=== PATIENT | female | born 1945 | race Caucasian/White ===

== ENCOUNTER 2018-12-27 21:38 | Inpatient (IN) ==
[2018-12-27] MEDS ORDERED: DUONEB (A & A) INH ONE (21:55)
[2018-12-27] MEDS ORDERED: ROCEPHIN 1 GM in NS 50 ML IV ONE (21:56)
[2018-12-27] MEDS ORDERED: PULMICORT INH ONE (21:56)
--- NOTE | 2018-12-27 22:10 | Diag Imaging Result Doc PS360 ---
EXAM: CHEST-1 VIEW HISTORY: SOB TECHNIQUE: Single view COMPARISON: 05/28/2017 FINDINGS: The lungs are well expanded. There are increased interstitial markings throughout both lungs. No cardiomegaly. There is a right jugular portacatheter. Small left pleural effusion. IMPRESSION: Bilateral infiltrates/pulmonary edema Electronically signed by Yves Mack 12/27/2018 10:08 PM
--- NOTE | 2018-12-27 22:12 | PROVIDER DOCUMENTATION ---
HPI-Respiratory General - General Chief Complaint: Shortness of Breath Stated Complaint: pna, sob Time Seen by Provider: 12/27/18 21:43 Source: patient Allergies/Adverse Reactions: Patient Allergies Allergy/AdvReac Type Severity Reaction Status Date / Time lorazepam [From Ativan] Allergy Unknown Verified 11/29/15 17:38 morphine Allergy Unknown Verified 11/29/15 17:38 Home Medications: Home Medication List Medication Instructions Recorded Confirmed Last Taken Type Clopidogrel [Plavix] 75 mg PO DAILY 09/22/15 12/27/18 11/28/15 History Furosemide 40 mg PO DAILY 09/22/15 12/27/18 11/28/15 History Losartan Potassium 100 mg PO DAILY 09/22/15 12/27/18 11/28/15 History Metformin [Glucophage] 500 mg PO DAILY 09/22/15 12/27/18 11/28/15 History Metoprolol Succinate E.r. [Toprol 12.5 mg PO DAILY 09/22/15 12/27/18 11/28/15 History Xl] Amlodipine [Norvasc] 5 mg PO DAILY 11/29/15 12/27/18 11/28/15 History Glipizide [Glipizide ER] 10 mg PO BID 11/29/15 12/27/18 11/28/15 History ATORVAstatin [Lipitor] 80 mg PO DAILY 12/27/18 12/27/18 Unknown History Aripiprazole 2 mg PO DAILY 12/27/18 12/27/18 Unknown History Fexofenadine [Cherry] 180 mg PO DAILY 12/27/18 12/27/18 Unknown History Insulin NPH Hum/Reg Insulin Hm 40 units SUBQ DAILY 12/27/18 12/28/18 Unknown History [Novolin 70-30 100 Unit/ml Vial] Isosorbide Mononitrate [Isosorbide 60 mg PO DAILY 12/27/18 12/27/18 Unknown History Mononitrate ER] - History of Present Illness-Resp Nature of Presenting Problem: 73 YO F pmh for COPD and lung CA s/p chemo and radiation therapy 3 years ago presents with c/o SOB x2 days worse over the past 24 hours. Pt states she went to urgent care and was dx with pna and given 1 shot of abx. She comes here because her SOB is worse. She is not on home o2. She denies CP. Quality of Pain: reports: none Severity in ED: reports: moderate Onset/Duration: reports: 2 days ago Timing: reports: still present, getting worse Context: reports: recent URI, other (pna). denies: recent foreign travel Cough Quality/Degree: reports: mild Associated Symptoms: reports: cough, fever/chills, shortness of breath. denies: hurts to breathe, sore throat Similar Symptoms Previously?: Yes Recently seen or treated by another doctor?: Yes (seen by urgent care, given abx) Review of Systems - Adult - REVIEW OF SYSTEMS - ADULT Constitutional: reports: chills. denies: fever Eyes: reports: no symptoms reported Ears, Nose, Mouth & Throat: reports: no symptoms reported Cardiovascular: denies: chest pain, edema, palpitations Respiratory: reports: cough, shortness of breath, wheezing Gastrointestinal: denies: diarrhea, nausea, vomiting Genitourinary: reports: no symptoms reported Musculoskeletal: reports: no symptoms reported Integumentary: reports: no symptoms reported Endocrine: reports: no symptoms reported Past History - Adult - PAST MEDICAL HISTORY-ADULT Review of Records: reports: Old Records Reviewed, Medications Reviewed Cardiovascular: reports: CAD, HTN, hyperlipidemia Respiratory: reports: asthma, cancer (lung) Gastrointestinal: reports: GERD Neurological: reports: CVA, other (menieres) Psychiatric: reports: anxiety Endocrine/Immune: reports: Diabetes - PRIOR SURGERIES/PROCEDURES Surgical/Procedure History: reports: cholecystectomy, hysterectomy. denies: recent surgery - IMMUNIZATION STATUS Childhood Immunizations: See Nurse Assessment Flu Vaccine: See Nurse Assessment - FAMILY HISTORY Family History: reviewed, not pertinent - SOCIAL HISTORY Smoking: quit greater than 1 year Substance Use: denies Living Situation: alone Physical Exam-General - PHYSICAL EXAM-ADULT Initial Vital Signs Reviewed: Yes - CONSTITUTIONAL General Appearance: alert, mild distress (resp distress) - EYES Eyes: PERRL/EOMI, pink conjunctivae - RESPIRATORY Respiratory: respiratory distress, accessory muscle use, crackles, wheezing - CARDIOVASCULAR Cardiovascular: no edema, tachycardia - GASTROINTESTINAL (ABDOMEN) Abdominal Exam: non tender, soft. negative: distended - MUSCULOSKELETAL Extremity: normal range of motion, normal inspection - SKIN Integumentary: normal color, normal turgor, warm/dry - PSYCHIATRIC Psych/Mental Status: normal mood/affect, oriented x 3 - HEART Score HEART Score: History: Slightly Suspicious HEART Score: ECG: Non-Specific Repolarization Disturbance/LBBB/PM HEART Score: Age: > or = 65 Years HEART Score: Risk Factors for Atherosclerotic Disease: 1 or 2 Risk Factors HEART Score: Troponin: 1-3x Normal Limit Total HEART Score:: 5 Progress - PLAN OF CARE/RESULTS Progress/Plan/Lab Results: Orders Category Date Time [facility] Routine [id number] 12/28/18 05:09 Active Activity - Up with Assistance ORDERED Care 12/28/18 05:09 Active Cardiac Monitoring DIRECTED Care 12/27/18 21:56 Completed FSBS/Accucheck Result AC + HS Care 12/28/18 05:09 Completed Intake and Output-Strict ORDERED Care 12/28/18 05:09 Completed Nursing- MD Consult Request ROUTINE Care 12/28/18 05:09 Completed Vital Signs Order Q 8-HR ASSESS Care 12/28/18 05:09 Completed Z-Document. for Tele Applied ORDERED Care 12/28/18 05:09 Completed NPO Diet 12/28/18 05:10 Completed CHEST-1 VIEW [RAD] Stat Exams 12/27/18 21:54 Completed CTA [CT ANGIOGRM PULMONARY ARTERIES] [CT] Stat Exams 12/27/18 21:59 Completed ABG [RESP] Routine Lab 12/27/18 22:25 Completed BASIC METABOLIC PANEL [CHEM] Routine Lab 12/29/18 04:35 Completed CBC WITH DIFF [HEME] Routine Lab 12/29/18 04:35 Completed CBC WITH ELECTRONIC DIFF [HEME] Stat Lab 12/27/18 22:36 Completed CK PROFILE [SP CHEM] Stat Lab 12/27/18 22:36 Completed COMPREHENSIVE METABOLIC PANEL [CHEM] Stat Lab 12/27/18 22:36 Completed TROPONIN T Q8HR Lab 12/28/18 13:16 Completed TROPONIN T Q8HR Lab 12/28/18 20:59 Completed TROPONIN T Q8HR Lab 12/29/18 04:35 Completed TROPONIN T Stat Lab 12/27/18 22:36 Completed TSH Stat Lab 12/27/18 22:36 Completed URINALYSIS W/POSS RFLX CULT [URINALYSIS] Stat Lab 12/28/18 00:05 Completed URINE CULTURE [RM] Routine Lab 12/28/18 01:36 Completed URINE MANUAL MICROSCOPIC [URINALYSIS] Stat Lab 12/28/18 00:05 Completed 0.9% Sodium Chloride Inj [Ns] 1,000 ml Med 12/28/18 00:00 Discontinued IV 999 mls/hr ATORVAstatin [Lipitor] Med 12/28/18 09:00 Discontinued 80 mg PO DAILY Albuterol 2.5MG/Ipratrop 0.5MG [Duoneb (A & A)] Med 12/28/18 05:09 Discontinued 3 ml INH Q4H PRN PRN Albuterol 2.5MG/Ipratrop 0.5MG [Duoneb (A & A)] Med 12/27/18 21:55 Discontinued 6 ml INH NOW ONE Amlodipine [Norvasc] Med 12/28/18 09:00 Discontinued 5 mg PO DAILY Aripiprazole [Abilify] Med 12/28/18 09:00 Discontinued 2 mg PO DAILY Azithromycin 500 mg/Ns [Zithromax 500 mg/Ns] Med 12/28/18 01:03 Discontinued 500 mg in 250 ml IV NOW Budesonide [Pulmicort] Med 12/27/18 21:56 Discontinued 0.5 mg INH NOW ONE CefTRIAXONE [Rocephin] 1 gm Med 12/27/18 21:56 Discontinued 0.9% Sodium Chloride Inj [Ns] 50 ml IV NOW Clopidogrel [Plavix] Med 12/28/18 09:00 Discontinued 75 mg PO DAILY Furosemide [Lasix] Med 12/28/18 09:00 Discontinued 40 mg PO DAILY Heparin Med 12/28/18 05:09 Discontinued 5,000 unit SUBQ Q12H Insulin Human Regular [Humulin R] Med 12/28/18 07:00 Discontinued See Protocol SUBQ 0700,1100,1600,2100 Isosorbide Mononitrate E.r. [Imdur] Med 12/28/18 09:00 Discontinued 60 mg PO DAILY Levofloxacin 500 mg/D5w [Levaquin 500 mg/D5w] Med 12/28/18 05:09 Discontinued 500 mg in 100 ml IV Q24H Losartan [Cozaar] Med 12/28/18 09:00 Discontinued 100 mg PO DAILY Metoprolol Succinate E.r. [Toprol Xl] Med 12/28/18 09:00 Discontinued 12.5 mg PO DAILY Aerosol Treatments Routine Oth 12/27/18 21:55 Completed Aerosol Treatments Routine Oth 12/28/18 05:09 Completed Aerosol Treatments Stat Oth 12/27/18 21:55 Completed Aerosol Treatments Stat Oth 12/28/18 05:09 Completed Telemetry [OM.EQ] Routine Oth 12/28/18 05:09 Active EKG [EKG] Stat Ther 12/27/18 21:54 Active Echo Spec/Color Doppler Routine Ther 12/28/18 05:09 Completed Transfer/Admit Order [TRANSFER] Routine Transfer 12/28/18 03:01 Completed Result Diagrams: 01/05/19 04:30 01/05/19 04:30 - REASSESSMENT Reassessment #1 Time Reassessed: 01:04 Status: improving (Pt resting comfortably in bed. O2 sats improved to 99% on 2 L. Pt not in resp distress. plan for admission. labs reviewed showing elevated WBC at 21k, elevated trop (pt without CP), elevated lactic acid greater than 4. Severe Sepsis 2/2 to atypical pna.) - EKG 1 Time of EKG reading by physician:: 21:56 EKG Read and Signed by:: Jeanne Martinez EKG Interpretation (*Must complete 3 of following elements*): Abnormal Rate: 112 Rhythm: Sinus Tachycardia QRS: PVC's ST Wave: non-specific ST changes Prior EKG Comparison: changes noted (from 10/21/16 prolonged QT interval) 2 Time of EKG reading by physician:: 00:23 EKG Read and Signed by:: Harika Guerrero EKG Interpretation (*Must complete 3 of following elements*): Abnormal Rate: 103 Rhythm: sinus tachy [place]: right QRS: PVC's ST Wave: non-specific ST changes Prior EKG Comparison: unchanged from prior (from above) - CT/MRI 1 CT Study: Angiogram, Thorax Impression: See EMR Report (1. No PE 2. Severe calcific atheromatous change of the thoracoabdominal aorta 3. b/l patchy infiltrates in right infrahilar consolidation. findings suspicious for atypical pna. associated small pleural effusions.) - CONSULTS/PCP/HOSPITALIST Notification #1 *Consult/PCP/Hospitalist*: Dr. Esparza Time Discussed: 01:16 Consult Disposition: Will see in ED, Admit Departure - Departure Date of Disposition Decision: 12/28/18 Time of Disposition Decision: 00:59 DIAGNOSIS: Atypical pneumonia, Hypoxia Disposition: ADMITTED INPATIENT 09 Certified Medical Emergency: Emergent Condition: - Critical Care Note This patient required my direct & personal management of CC.: No Attestation - Physician/ SARA Attestation The physician spent face to face time with patient:: Yes Advanced Practice Provider documentation review:: Supervising physician onsite and consulted in the evaluation and care of this patient. The physician did have a face to face encounter with the patient.
[2018-12-27 22:27] LABS: ALLEN TEST YES; BE -3.8 mmoll (-3.0-3.0); BLOOD TYPE ARTERIAL; HCO3-(ACT) 21.9 mmoll (20.0-26.0); METHB 1.2 % (0.0-1.5); O2(CT) 17.1 mL/dL (15.0-23.0); O2HB 94.5 % (95.0-99.0); PCO2(98.6) 39 mmHg (35-45); PO2(98.6) 133 mmHg (60-100); SAMPLE BLOOD; SAO2 99.4 % (95.0-100.0); THB 12.7 g/dL (11.5-17.4); pH(98.6) 7.35 (7.35-7.45)
[2018-12-27 22:29] LABS: MODALITY COOL AEROSOL
[2018-12-27 23:00] LABS: BASO# 0.03 X1000 (0.0-0.2); BASO% 0.1 % (0.0-0.8); EOS# 0.01 X1000 (0.0-0.7); HEMATOCRIT 37.2 % (37.0-47.0); HEMOGLOBIN 11.8 g/dL (12.0-16.0); IMM GRAN# 0.08 X1000 (0.0-0.04); IMM GRAN% 0.4 % (0.0-0.5); MCH 29.1 PG (27-31); MCHC 31.7 g/dL (33-37); MCV 91.9 FL (81-99); MONO# 1.48 X1000 (0.11-0.59); MONO% 6.9 % (1.7-9.3); MPV 10.3 FL (7.4-10.4); NEUT% 86.6 % (42.2-75.2); PLT 337 X1000 (130-400); RBC 4.05 XMIL (4.2-5.4); RDW 14.7 % (11.5-14.5)
[2018-12-27 23:35] LABS: ALB/GLOB RATIO 1.4; ALBUMIN 3.6 g/dL (3.5-5.0); CREATININE 1.4 mg/dL (0.5-0.9); POTASSIUM 4.1 mmol/L (3.5-5.1); TOTAL BILIRUBIN 0.29 mg/dL (0.20-1.00); TOTAL PROTEIN 6.1 g/dL (6.3-8.3)
[2018-12-28 00:30] LABS: CK INDEX 4.2 (0.0-2.5); CK-MB 19.42 ng/mL (0.0-5.0)
[2018-12-28 00:36] LABS: URINE SOURCE CATH
[2018-12-28] MEDS ORDERED: ZITHROMAX 500 MG/NS 500 MG/250 ML IVPB IV ONE (01:03)
[2018-12-28 01:24] LABS: BILIRUBIN URINE NEGATIVE (NEGATIVE); BLOOD URINE NEGATIVE (NEGATIVE); COLOR YELLOW; GLUCOSE URINE 500 mg/dL (NEGATIVE); KETONE URINE NEGATIVE (NEGATIVE); LEUKOCYTES URINE MODERATE (NEGATIVE); NITRITE URINE NEGATIVE (NEGATIVE); PH URINE 5.5; PROTEIN URINE 30 mg/dL (NEGATIVE); SP GRAVITY URINE 1.043; TURBIDITY URINE CLEAR (CLEAR); UROBILINOGEN URINE NORMAL (NORMAL)
[2018-12-28 01:26] LABS: UR EPITHELIAL CELLS >10 /HPF (<10); URINE BACTERIA NEGATIVE /HPF; URINE RBC <10 /HPF (<10); URINE WBC 20-40 /HPF (<10)
[2018-12-28 01:53] LABS: URINE CASTS NONE SEEN; URINE CRYSTALS NONE SEEN; URINE SMALL ROUND CELLS NONE SEEN; URINE YEAST NONE SEEN
--- NOTE | 2018-12-28 03:25 | HISTORY AND PHYSICAL ---
PRIMARY CARE PHYSICIAN: Dr. Allison Jones. CHIEF COMPLAINT: Shortness of breath and coughing x3 days. HISTORY OF PRESENTING ILLNESS: A 73-year-old elderly female with a history of hypertension, diabetes mellitus type 2, hyperlipidemia, who had presented to the emergency department with 3 days history of having worsening shortness of breath and persistent cough. She states that it was productive of yellowish material and states that she was having difficulty breathing. She was evaluated in the emergency department. She had imaging done which did show atypical pneumonia. Due to her presenting symptoms, she will require admission for further management. At the time of my examination, patient denied any headache, fever, chills, chest pain, hemoptysis, melena, but complained of coughing and shortness of breath. PAST MEDICAL HISTORY: Includes hypertension, diabetes mellitus type 2, hyperlipidemia. PAST SURGICAL HISTORY: Lung surgery, hysterectomy, cholecystectomy, neck surgery, ankle surgery. ALLERGIES: Lorazepam and morphine. CURRENT MEDICATIONS: Amlodipine 5 mg p.o. daily, aripiprazole 2 mg p.o. daily, atorvastatin 80 mg p.o. daily, Plavix 75 mg p.o. daily, Cherry 180 mg p.o. daily, Lasix 40 mg p.o. daily, glipizide 10 mg p.o. b.i.d., Novolin 70/30 of 40 units subcutaneous daily, isosorbide mononitrate 60 mg p.o. daily, losartan 100 mg p.o. daily, metformin 500 mg p.o. daily, metoprolol 12.5 mg p.o. daily. SOCIAL HISTORY: 40+ pack years history of smoking. She denies any history of alcohol or illicit drug use. FAMILY HISTORY: Positive for coronary artery disease in mother and father. REVIEW OF SYSTEMS: Fourteen point review of systems as listed in HPI. Other systems negative. PHYSICAL EXAMINATION: GENERAL: Cooperative, friendly female. She is resting more comfortably now. VITAL SIGNS: Temperature 99.9 degrees, pulse 121 respirations 29, blood pressure 160/85. HEENT: Atraumatic, normocephalic. Extraocular movements intact. PERRLA. NECK: No masses. CHEST: Bibasilar rales. CARDIOVASCULAR: Regular rate and rhythm. ABDOMEN: Soft, obese, positive bowel sounds. EXTREMITIES: Trace edema. NEUROLOGIC: She is awake, alert, oriented x3. GENITOURINARY: No bladder distention. SKIN: Warm. LABORATORIES AND STUDIES: WBCs 21.50, hemoglobin 11.8, hematocrit 37.2, platelets 337,000. Sodium 134, potassium 4.1, chloride 90, CO2 is 23, BUN is 27, creatinine is 1.4, glucose is 362. Troponin is 0.508. Pulmonary arteriogram shows atypical pneumonia. ASSESSMENT: A 73-year-old female with a history of hypertension, diabetes mellitus type 2 and hyperlipidemia, who had presented to the emergency department with 3 days history of persistent cough and shortness of breath. She was evaluated the emergency department. She had imaging done which did show atypical pneumonia. Subsequently, she will require admission for further management. 1. Atypical pneumonia. 2. Sepsis. 3. Elevated troponin. 4. Hypertension. 5. Diabetes mellitus type 2. PLAN: 1. We will admit patient to [facility]. 2. We will check blood cultures. Start the patient on IV antibiotics. 3. We will continue with gentle hydration. 4. We will trend her troponins and consult Cardiology. 5. Monitor blood pressure closely. 6. We will put patient on sliding scale insulin regimen and monitor blood glucose. 7. Put patient on DVT prophylaxis with heparin. 8. We will continue to follow, and reassess and make further recommendation based on patient's clinical course. cc: Nilson Esparza MD
[2018-12-28] MEDS ORDERED: DUONEB (A & A) INH PRN (05:09)
[2018-12-28] MEDS ORDERED: LEVAQUIN 500 MG/D5W 500 MG/100 ML IVPB IV SCH (05:09)
--- NOTE | 2018-12-28 05:24 | EKG Report ---
Test Performed on : 12/28/2018 00:13:55 AM Test Reason : CP Blood Pressure : / mmHG Vent. Rate : 103 BPM Atrial Rate : 103 BPM P-R Int : 154 ms QRS Dur : 112 ms QT Int : 394 ms P-R-T Axes : 065 078 092 degrees QTc Int : 516 ms Sinus tachycardia. with occasional premature ventricular complexes. Nonspecific ST abnormality Abnormal ECG When compared with ECG of 27-DEC-2018 21:49, (Unconfirmed) No significant change was found Unconfirmed Result
[2018-12-28] MEDS: HEPARIN SUBQ SCH ×2 (07:22→19:23)
--- NOTE | 2018-12-28 08:38 | Diag Imaging Result Doc PS360 ---
EXAM: CT ANGIOGRM PULMONARY ARTERIES 12/27/2018 HISTORY: SOB TECHNIQUE: This exam was performed using automated exposure control, adjustment of mA or kV according to patient size, and/or use of iterative reconstruction technique. COMMENT: There are no filling defects in the pulmonary arteries. 3-D MIPS were performed. Comparison is made with the PET/CT of 01/08/2017. There is severe atheromatous disease in the thoracic aorta, with mostly noncalcified plaque. There is no evidence of dissection. There is calcification in the proximal brachiocephalic vessels particularly the left subclavian. There is also severe atheromatous disease in the descending aorta distally. There are calcifications throughout the coronary arteries. There are bilateral pleural effusions and a small pericardial effusion is present. There is a partially imaged nodule in the left adrenal gland measuring 15 mm in transverse dimension. This is larger than the 14 mm present at the previous study. Again, this is at the bottom of the series and is not completely imaged. The pleural fluid collection on the right was not previously present and the fluid collection on the left is larger. The pericardial effusion was not as large previously. There is compression atelectasis in both lower lung mahoney. There is a somewhat irregular pulmonary nodule in the right lower lobe on image 85 measuring 9 mm in diameter. This was apparently present previously, however previously it was more groundglass in density. It is essentially unchanged in size. There are patchy peripheral opacities in the left upper lobe which were largely present on the previous study a similar appearance is present in the right upper lobe with a fairly large area of ill-defined opacity posterior laterally on image 51. This was not present at the time the previous study. There is more volume loss in the posteromedial right lower lobe than on the previous study. There are also patchy alveolar opacities present in the right lower lobe which were not previously present. There are spondylotic changes in the thoracic spine. Postsurgical changes are seen in the lower cervical spine. IMPRESSION: No evidence of pulmonary emboli. Patchy alveolar opacities bilaterally which are worse than on 01/08/2017. The possibility of pneumonia or septic embolus disease cannot be excluded. Worsened bilateral pleural effusions and pericardial effusion. Denser nodule in the left lower lobe. Electronically signed by Fermin Rivera 12/28/2018 8:35 AM
--- NOTE | 2018-12-28 10:12 | EKG Report ---
Test Performed on : 12/28/2018 10:04:25 AM Test Reason : CP, elevated troponin Blood Pressure : / mmHG Vent. Rate : 096 BPM Atrial Rate : 096 BPM P-R Int : 148 ms QRS Dur : 106 ms QT Int : 428 ms P-R-T Axes : 061 091 092 degrees QTc Int : 540 ms Sinus rhythm. with frequent premature ventricular complexes. Rightward axis Nonspecific ST and T wave abnormality Prolonged QT Abnormal ECG When compared with ECG of 28-DEC-2018 00:13, (Unconfirmed) No significant change was found Unconfirmed Result
[2018-12-28] MEDS ORDERED: NS 1,000 ML IV ONE ×2 (10:17)
--- NOTE | 2018-12-28 11:34 | CARDIOLOGY CONSULTATION ---
DATE: 12/28/2018 CHIEF COMPLAINT ON PRESENTATION: Shortness of breath and coughing for a few days. HISTORY OF PRESENT ILLNESS: This is a 73-year-old white female with a history of hypertension, coronary disease, diabetes. She presents for evaluation of shortness of breath. This has not improved over the last 3 to 4 days and seems like it is worsening. She is a somewhat difficult historian and it seems like she get short of breath fairly easily but she was not able to really characterize what activities cause her to be short of breath. She reports a productive cough of clear sputum. No fevers at home. She has been somewhat weak and fatigued. At times when she gets short of breath she gets a pressure-like discomfort in her mid chest radiating to the back. PAST MEDICAL HISTORY: 1. Significant for coronary disease identified by cardiac catheterization in July 2016. She had a 20% left main. The LAD was calcified with 20% proximal, 50% mid, 70% distal. The D1 had a proximal 50% lesion. Circumflex was occluded proximally filling via [id number] collaterals. The RCA was heavily calcified with a mid 80% stenosis and a 90% distal stenosis. The ejection fraction on that study was 55%. She was recommended for coronary bypass grafting at that time, but he never followed up. 2. Hypertension. 3. Carotid artery disease. 4. History of stroke. 5. Hyperlipidemia. 6. History of adenocarcinoma of the lung. SOCIAL HISTORY: 40+ past pack year history of smoking. No alcohol or illicit drugs. FAMILY HISTORY: Significant for coronary disease in both parents. REVIEW OF SYSTEMS: A 10 system review of systems is negative except for those mentioned in HPI. PHYSICAL EXAMINATION: She is afebrile. Her heart rate is 95. Her blood pressure on presentation was 160/85 but all other systolics have been in the 70s to 90s. General: She is a pleasant, in no acute distress. HEENT: Oropharynx is moist. Poor dentition. Eye examination shows pink conjunctivae. White sclerae. Neck: Examination shows no obvious thyromegaly or thyroid tenderness. Cardiovascular: She sounds to be in a regular rate and rhythm. I do not hear any obvious murmurs. She has no S3. She has no lower extremity edema. Chest: Has coarse breath sounds somewhat diffusely. She has no increased work of breathing. Abdomen: Soft, nontender, nondistended. She has no obvious organomegaly. Skin: Warm and dry throughout. Neurological: She is moving all extremities well. She has no lateralizing deficits. PERTINENT DATA: Her EKG on the at 21:49 shows sinus rhythm. She has some ST depression laterally, PVCs were identified on this study. Her next EKG occurring on the at just after midnight had a rate of 103. She has continued mild ST depression in the lateral leads. PVC was noted and her final EKG on at 10:[address] shows improvement in the ST depression. PVCs identified. She had a pulmonary arteriogram that demonstrates patchy alveolar opacities bilaterally worse than 2017. Possibility of pneumonia or possible septic emboli. Bilateral pleural effusions as well as a pericardial effusion noted. Apparently there was a pericardial effusion noted on a previous study. Some pulmonary nodules were noted. Her lab data demonstrates a white count of 21. She has a left shift. Her sodium is 134, potassium 4.1, BUN 27, creatinine is 1.4. Her enzymes have been positive with a troponin initially of 0.508. Subsequently up to 1.2. Her lactate is most recently 2.7. ASSESSMENT: Ms. Botello is a 73-year-old female who presents with pneumonia and sepsis. PLAN: She is hypotensive, positive lactate, elevated white count. Septic shock is most likely the etiology of her symptoms as it appears she has a pulmonary infectious process. We are awaiting the results of the echocardiogram. Her EKG does show ischemic changes and this is likely a supply- demand mismatch situation in a patient with known severe coronary disease. She refused intervention for this back in 2017 as she did not want have a bypass. At this point, she is on aspirin which we will continue. She likely cannot continue on the anti-hypertensives that she is on a given her hypotension. We will try to optimize her from a cardiovascular standpoint when her hemodynamics improve after resuscitation of sepsis. cc: Lyndon Gonzalez MD MTDD
[2018-12-28] MEDS: DUONEB (A & A) INH SCH ×4 (11:40→23:02)
[2018-12-28] MEDS: ZOSYN 2.25 GM in NS 50 ML IV SCH ×2 (13:52→20:20)
[2018-12-28] MEDS: LIPITOR PO SCH (13:53)
[2018-12-28] MEDS: ASPIRIN PO SCH (13:53)
[2018-12-28] MEDS: LASIX PO SCH (13:53)
[2018-12-28] MEDS: PLAVIX PO SCH (13:53)
[2018-12-28] MEDS: TOPROL XL PO SCH (13:54)
[2018-12-28] MEDS: ZYVOX 600 MG/D5W 600 MG/300 ML IVPB IV SCH (13:57)
[2018-12-28] MEDS: HUMULIN R SUBQ SCH ×3 (15:32→22:01)
[2018-12-28] MEDS ORDERED: LASIX IV ONE (16:45)
[2018-12-28 17:45] LABS: URINE SOURCE CATH
[2018-12-28 17:50] LABS: BILIRUBIN URINE NEGATIVE (NEGATIVE); BLOOD URINE TRACE (NEGATIVE); COLOR YELLOW; GLUCOSE URINE TRACE mg/dL (NEGATIVE); KETONE URINE NEGATIVE (NEGATIVE); LEUKOCYTES URINE TRACE (NEGATIVE); NITRITE URINE NEGATIVE (NEGATIVE); PH URINE 5.5; PROTEIN URINE TRACE mg/dL (NEGATIVE); SP GRAVITY URINE 1.049; TURBIDITY URINE CLEAR (CLEAR); UR EPITHELIAL CELLS <10 /HPF (<10); URINE BACTERIA NEGATIVE /HPF; URINE RBC <10 /HPF (<10); URINE WBC <10 /HPF (<10); UROBILINOGEN URINE NORMAL (NORMAL)
[2018-12-28 18:13] LABS: ALLEN TEST YES; BE -6.5 mmoll (-3.0-3.0); BLOOD TYPE ARTERIAL; HCO3-(ACT) 19.7 mmoll (20.0-26.0); O2(CT) 18.7 mL/dL (15.0-23.0); O2HB 91.8 % (95.0-99.0); PO2(98.6) 70 mmHg (60-100); SAMPLE BLOOD; SAO2 94.3 % (95.0-100.0); THB 14.5 g/dL (11.5-17.4)
[2018-12-28 18:15] LABS: MODALITY BI PAP; PCO2(98.6) 57 mmHg (35-45)
[2018-12-28] MEDS: ABILIFY PO SCH (18:54)
[2018-12-28] MEDS: COZAAR PO SCH (18:55)
[2018-12-28] MEDS: NORVASC PO SCH (18:55)
[2018-12-28] MEDS: IMDUR PO SCH (18:56)
--- NOTE | 2018-12-28 20:12 | ECHO REPORT ---
ORDER DATE: 12/28/2018 INDICATION: This is a 73-year-old female with shortness of breath. M-MODE MEASUREMENTS: Left ventricle end diastole: 4.1. Left ventricle end systole: 2.7. Posterior wall: 1.0. Interventricular septum: 1.0. Left atrium: 3.5. Aortic diameter: Not well visualized. SUMMARY OF 2-DIMENSIONAL IMAGING: The study is very limited. 1. The global left ventricular systolic function is probably at the lower limits of normal, estimated at 55%. I believe there is wall motion abnormality involving the posterior and inferior wall of the left ventricle, suggesting coronary heart disease. 2. The aortic valve is probably normal. Color flow mapping unremarkable. There is no evidence of any significant gradient across the aortic valve although this study was really very limited. 3. The mitral valve shows no significant regurgitation. The pulsed wave Doppler of mitral inflow shows "normal" E/A ratio. 4. Tissue Doppler of septal and lateral mitral annulus is suboptimal. 5. Diastolic function may or may not be present. 6. There is mild degree of mitral regurgitation. 7. The tricuspid valve was also suboptimally visualized. 8. Cannot tell if there is any significant degree of pulmonary hypertension. 9. The pulmonic valve was not visualized. 10.The Doppler signal appears to be faint. 11.I do not see evidence of pericardial infusion. 12.The inferior vena cava is not dilated. 13.The left atrium appears to be moderately enlarged. Clinical correlation recommended. cc: MD Nilson Johnson MD
[2018-12-28] MEDS: DOXYCYCLINE 100 MG in NS 250 ML IV SCH (22:46)
--- NOTE | 2018-12-28 23:40 | PULMONOLOGY CONSULTATION ---
DATE: 12/28/2018 REQUESTING PHYSICIAN: Dr. Keyes. REASON FOR CONSULTATION: Respiratory distress. HISTORY OF PRESENT ILLNESS: Ms Botello is a 73-year-old white female status post radiation and chemotherapy for lung cancer, history of 3-vessel coronary artery disease, who decided not to pursue recommended 3-vessel bypass grafting, who has not been recently evaluated by Oncology or Cardiology. The patient presented to the emergency room yesterday evening with 2 to 3 day history of increased shortness of breath, fatigue. She was evaluated at the Urgent Care and diagnosed with pneumonia and given an antibiotic shot. The patient's shortness of breath progressed and therefore she presented to the emergency room. The patient's maximum temperature during this hospitalization was 99.9 degrees. She had an elevated lactate upon presentation along with acute hypoxemic respiratory failure and increase in her AA gradient. Initial troponin was 0.50 and her CPK index was elevated as well. She underwent a CT pulmonary angiogram which revealed slight increase in mass/area of consolidation at the right base with pleural effusions, pericardial effusion and patchy infiltrates which were new or worse when compared to prior CT PET scan 01/08/2017. The patient developed progressive respiratory distress this evening with increased work of breathing and she was initiated on BiPAP. She has had some clinical improvement. PAST MEDICAL HISTORY: 1. Non-small cell lung cancer. The patient received chemoradiation. This was in around 2012 or 2013. Family reports that she was cleared by her oncologist after 5 years. 2. Nicotine addiction with ongoing tobacco use. 3. Diabetes mellitus. 4. Hysterectomy. 5. Status post cholecystectomy. 6. Dyslipidemia. 7. History of stroke. 8. Peripheral vascular disease. 9. Coronary artery disease as outlined by Dr. Lyndon Gonzalez. She underwent catheterization 07/2016, which revealed significant disease in the LAD, complete occlusion of the circumflex proximally, with significant disease in the RCA. The patient elected not to pursue recommended bypass grafting. SOCIAL HISTORY: The patient continues to smoke. No alcohol use listed. FAMILY HISTORY: Positive for heart disease. REVIEW OF SYSTEMS: Difficult to obtain due to BiPAP. Review of systems performed by others were reviewed. The family also reports she does have some birds which are shedding. They indicated the birds do not appear to be ill. PHYSICAL EXAMINATION: Reveals a well-developed, well-nourished female on BiPAP. She appears to be comfortable at this juncture. Blood pressure 116/51, heart rate 105, respiratory rate 20, O2 saturation 100%. HEENT: Pupils are equal, reactive. Oropharynx appears clear but evaluation is limited. Neck: Supple. Chest: Reveals crackles bilaterally. Cardiac: S1, S2. Abdomen: Obese and soft. Extremities: Reveal trace edema. LABORATORIES: CT scan as per HPI. Arterial blood gas on BiPAP reveals pH 7.20, pCO2 of 57, pO2 of 70. Sodium last evening 134, potassium 4.1, chloride 90, bicarbonate 23, BUN 27, creatinine 1.4. Troponin levels have shown a serial increase from 0.05 to 0.7 to 1.2 to 1.39. IMPRESSION: A 73-year-old with history of coronary artery disease and history of lung cancer with diabetes mellitus and ongoing tobacco use who presents with 1. Acute hypoxemic respiratory failure. 2. Hypercapnic respiratory failure. 3. Leukocytosis with patchy infiltrates on CT scan. 4. Non ST elevation myocardial infarction/myocardial ischemia. DISCUSSION: 73-year-old with problems outlined above. It is not clear whether this represents myocardial ischemia or whether it represents an infectious process leading to demand myocardial ischemia. Her cardiac catheterization was 2 years ago and she has continued to smoke and it is likely that her coronary artery disease has progressed. However, she does have patchy infiltrates along with leukocytosis. This may be a pneumonia. However, findings on the CT scan would not be inconsistent with a metastatic lung cancer such as a bronchoalveolar cell carcinoma. Original pathology not available for review. RECOMMENDATIONS: 1. Transfer to the intensive care unit. 2. Continue BiPAP. 3. Continue broad-spectrum antibiotics. 4. We will add atypical coverage. Because she has also been exposed to birds, we will use doxycycline to cover psittacosis. 5. Check a CEA level. 6. The patient will require follow-up CT scan if she survives this hospital stay. cc: Isaias Dwyer MD
[2018-12-29] MEDS: ZYVOX 600 MG/D5W 600 MG/300 ML IVPB IV SCH ×2 (00:38→13:00)
[2018-12-29] MEDS: ZOSYN 2.25 GM in NS 50 ML IV SCH ×4 (02:47→20:05)
[2018-12-29] MEDS: HEPARIN SUBQ SCH ×3 (04:59→16:12)
[2018-12-29] MEDS: XANAX PO PRN (04:59)
[2018-12-29 05:27] LABS: ALLEN TEST YES; BE -1.9 mmoll (-3.0-3.0); BLOOD TYPE ARTERIAL; HCO3-(ACT) 23.4 mmoll (20.0-26.0); METHB 1.1 % (0.0-1.5); MODALITY BI PAP; O2HB 96.9 % (95.0-99.0); PCO2(98.6) 35 mmHg (35-45); PO2(98.6) 189 mmHg (60-100); SAMPLE BLOOD; SAO2 99.5 % (95.0-100.0); THB 12.2 g/dL (11.5-17.4); pH(98.6) 7.41 (7.35-7.45)
[2018-12-29] MEDS: DUONEB (A & A) INH SCH ×6 (06:01→23:22)
[2018-12-29] MEDS: HUMULIN R SUBQ SCH ×4 (06:38→21:17)
[2018-12-29 06:45] LABS: BASO# 0.01 X1000 (0.0-0.2); BASO% 0.1 % (0.0-0.8); EOS# 0.04 X1000 (0.0-0.7); EOS% 0.3 % (0.0-10.0); HEMATOCRIT 31.5 % (37.0-47.0); HEMOGLOBIN 9.9 g/dL (12.0-16.0); IMM GRAN# 0.04 X1000 (0.0-0.04); IMM GRAN% 0.3 % (0.0-0.5); LYMPH# 2.19 X1000 (1.2-3.4); LYMPH% 15.4 % (20.5-51.1); MCHC 31.4 g/dL (33-37); MCV 92.4 FL (81-99); MONO# 1.58 X1000 (0.11-0.59); MONO% 11.1 % (1.7-9.3); MPV 10.5 FL (7.4-10.4); NEUT# 10.39 X1000 (1.4-6.5); NEUT% 72.8 % (42.2-75.2); PLT 287 X1000 (130-400); RBC 3.41 XMIL (4.2-5.4); RDW 14.9 % (11.5-14.5); WBC 14.25 X1000 (4.8-10.8)
[2018-12-29 07:06] LABS: CALCIUM 8.4 mg/dL (8.8-10.2); POTASSIUM 4.6 mmol/L (3.5-5.1)
--- NOTE | 2018-12-29 07:18 | Diag Imaging Result Doc PS360 ---
EXAM: CHEST-PORTABLE 12/29/2018 HISTORY: abnormal exam TECHNIQUE: AP portable at 0536 COMMENT: There is a Port-A-Cath in the right internal jugular with its tip in the right atrium. There is alveolar and interstitial opacity bilaterally particularly in the parahilar region on the right. Some slight improvement with regard to the left upper lobe and worsening in the right lower lobe is present compared to the previous study of 12/27/2014. IMPRESSION: Pulmonary edema and/or pneumonia. Electronically signed by Fermin Rivera 12/29/2018 7:16 AM
[2018-12-29] MEDS: LASIX PO SCH ×2 (07:52→09:11)
[2018-12-29] MEDS: NORVASC PO SCH ×2 (07:55→09:11)
[2018-12-29] MEDS: ASPIRIN PO SCH ×2 (07:55→09:10)
[2018-12-29] MEDS: TOPROL XL PO SCH ×2 (07:55→09:12)
[2018-12-29] MEDS: IMDUR PO SCH ×2 (07:55→09:11)
[2018-12-29] MEDS: PLAVIX PO SCH ×2 (07:55→09:12)
[2018-12-29] MEDS: LIPITOR PO SCH ×2 (07:56→09:11)
[2018-12-29] MEDS: ABILIFY PO SCH ×2 (07:56→09:10)
[2018-12-29] MEDS: COZAAR PO SCH ×2 (07:56→09:11)
[2018-12-29] MEDS ORDERED: DUONEB (A & A) INH PRN (08:52)
[2018-12-29] MEDS: DOXYCYCLINE 100 MG in NS 250 ML IV SCH ×2 (10:15→22:09)
--- NOTE | 2018-12-29 12:45 | PROGRESS NOTE ---
DATE: 12/29/2018 SUBJECTIVE: The patient is weak, tired, short of breath. She is on BiPAP, but does answer questions. A little bit lethargic, but not terribly so. OBJECTIVE: Vital Signs: Blood pressure is 110/61, heart rate of 100, respiratory rate 23, temperature 99.7 degrees. She has not had a full-blown fever. Cardiovascular: Tachycardic. Pulmonary: Diminished breath sounds at the bases. No wheezes, no rhonchi. GI: Soft, nontender, nondistended. Bowel sounds are positive. IMAGING AND LABORATORY DATA: White count is 14, which is down from 21, hemoglobin and hematocrit 9.9 and 31, platelets of 287,000. PH 7.41, pCO2 of 35, PaO2 of 189. BUN and creatinine have risen to 38 and 2, which is up from 27 and 1.4, and she has never had this degree of renal failure. Her troponin has come up to 1.8, and her CK-MB and index were all positive, consistent with at least myocardial ischemia. It may not be a true non-STEMI versus just a supply/demand mismatch related to her sepsis, but she does have wall motion abnormality on her echocardiogram. Echo showed an EF of 55%, wall motion abnormality, posterior and inferior wall. PROBLEM LIST: 1. Pneumonia, which is atypical. I guess my concern is, is this pneumonia or is this edema, like cardiogenic edema? I do not know. She has had progression in her infection and her renal dysfunction as well. Will check a procalcitonin level, and follow. She is empirically on broad-spectrum antibiotics, Zosyn, Zyvox, and doxycycline to cover atypical Methicillin- resistant Staphylococcus aureus and Pseudomonas. 2. Elevated troponin. Continues to rise. She has got renal insufficiency. Again, unclear if it is supply/demand mismatch. I am waiting on Cardiology input, and to decide about anticoagulation or not, if this is truly an unstable angina. She had a catheterization in 2017 that had multiple disease, but she refused I guess bypass at that time. I do not know if she would be amenable now or amenable to percutaneous coronary intervention, but we will continue to follow. 3. Type 2 diabetes. Will continue to follow blood sugars closely. 4. Acute on chronic renal failure. She is not getting anything nephrotoxic now. I stopped her Lasix and her angiotensin-receptor latoya. Will check urine electrolytes, I guess a renal ultrasound, and follow. 5. Acute on chronic respiratory failure. May be multifactorial. Will continue to monitor closely. She is on bilevel positive airway pressure currently, so will defer to Dr. Dwyer and Dr. Gonzalez about deciding about related to cancer or cardiogenic shock. cc: Best Tellez MD
[2018-12-29 15:27] LABS: UR CREAT RANDOM 141.7 mg/dL (11-20); UR PROT RANDOM 30.2 mg/dL
[2018-12-29] MEDS: HALDOL IV PRN (15:37)
--- NOTE | 2018-12-29 16:00 | Diag Imaging Result Doc PS360 ---
EXAM: US RENAL 2 (RETROPER) COMPLETE HISTORY: zachary/arf TECHNIQUE: Renal ultrasound COMPARISON: None. FINDINGS: The right kidney measures "0.0 x 5.0 x 6.4 cm. The left kidney measures 11.4 x 5.4 x 5.8 cm. Normal renal echotexture and cortical thickness. There are small scattered renal cysts. None measure over 12 mm. No stones or hydronephrosis. IMPRESSION: Small renal cysts, otherwise normal renal ultrasound Electronically signed by Yves Mack 12/29/2018 3:58 PM
[2018-12-29] MEDS: SOLU-MEDROL IV SCH (16:11)
--- NOTE | 2018-12-29 16:50 | EKG Report ---
Test Performed on : 12/29/2018 5:26:27 PM Test Reason : ICU Blood Pressure : / mmHG Vent. Rate : 100 BPM Atrial Rate : 100 BPM P-R Int : 146 ms QRS Dur : 118 ms QT Int : 394 ms P-R-T Axes : 064 073 080 degrees QTc Int : 508 ms Normal sinus rhythm. Nonspecific intraventricular conduction delay Nonspecific ST abnormality Prolonged QT Abnormal ECG When compared with ECG of 28-DEC-2018 10:04, premature ventricular complexes. are no longer present Unconfirmed Result
[2018-12-29] MEDS ORDERED: NEO-SYNEPHRINE 50 MG in NS 250 ML IV SCH (18:30)
--- NOTE | 2018-12-29 20:17 | CARDIOLOGY PROGRESS NOTE ---
DATE: 12/29/2018 SUBJECTIVE: Ms. Botello is somewhat agitated right now. She is on BiPAP. She was given some Haldol recently. OBJECTIVE: Vital signs: Patient is afebrile. Most recent heart rate is 102. Most recent blood pressure is 94/59. General: She is in mild distress secondary to shortness of breath. BiPAP is in place. Cardiovascular: She sounds to be mildly tachycardic but regular. She has no obvious murmurs. She has warm and well perfused extremities. Respiratory: Her chest exam has profound bilateral end-expiratory wheezes. She has a BiPAP in place. Abdomen: Soft, nontender. PERTINENT DATA: Lab dumont, her white count is 14.2, hematocrit 31, platelet count is 287,000. Her sodium is 136, potassium is 4.6, BUN 38, creatinine is 2. Her troponin initially was 0.508 and is up to 1.87. ASSESSMENT: Ms. Botello is a 73-year-old female with severe coronary artery disease who refused bypass 2 years ago. She presented with a picture suggestive of sepsis. PLAN: Her kidney function is worse. Her echocardiogram was reviewed and demonstrates a preserved EF with wall motion abnormalities consistent with her previous known occluded arteries. I believe that most likely her enzyme elevation is supply-demand mismatch and likely secondary to severe diffuse coronary disease. At this time, I will add in some steroids as her lungs are very wheezy. I will recheck her EKG today. She is on an aspirin. cc: Lyndon Gonzalez MD
--- NOTE | 2018-12-30 00:26 | PULMONOLOGY PROGRESS NOTE ---
DATE: 12/29/2018 SUBJECTIVE: The patient is on BiPAP. She is arousable but is not conversant. OBJECTIVE: Vital Signs: Maximum temperature in the last 24 hours is 99.8 degrees. BP 92/53, heart rate 99, respiratory rate 22, oxygen saturation 100%. HEENT: Pupils are equal and reactive. Oropharynx is difficult to evaluate with BiPAP in place. Neck: Supple. Chest: Reveals diffuse crackles bilaterally. Cardiac: S1, S2. Abdomen: Soft. Extremities: Cool to the touch. LABORATORIES: Chest x-ray reveals probable effusions with increased density in both lung bases. Microbiology reveals no new data. White blood count 14.25, hemoglobin 9.9, platelet count 287,000. Sodium 136, potassium 4.6, chloride 97, bicarbonate 23, BUN 38, creatinine 2.0. Troponin 1.87. IMPRESSION: A 73-year-old with 1. Acute hypoxemic respiratory failure. 2. Diabetes mellitus. 3. Pneumonia. 4. Non ST-segment elevation myocardial infarction. 5. Acute renal failure. 6. Borderline blood pressure. DISCUSSION: A 73-year-old with problems outlined above. She has respiratory failure and is critically ill with known severe three-vessel disease. She is increasing her troponin despite trending downward. The patient was not a previous candidate for intervention short of bypass surgery. I discussed this with the family. They are aware that she may not survive and end of life discussions are in progress. PLAN: 1. Continue BiPAP. 2. Continue broad-spectrum antibiotics. 3. Continue aspirin, Plavix for coronary artery disease. 4. Continue heparin for DVT prophylaxis. 5. Ongoing end of life discussions. TIME SPENT: In critical care management 35 minutes. cc: Isaias Dwyer MD
[2018-12-30] MEDS: SOLU-MEDROL IV SCH ×3 (00:40→16:55)
[2018-12-30] MEDS: ZYVOX 600 MG/D5W 600 MG/300 ML IVPB IV SCH ×2 (00:40→13:17)
[2018-12-30] MEDS: ZOSYN 2.25 GM in NS 50 ML IV SCH ×4 (03:08→20:13)
[2018-12-30] MEDS: DUONEB (A & A) INH SCH ×6 (03:14→23:18)
[2018-12-30] MEDS: HEPARIN SUBQ SCH ×2 (06:00→16:55)
[2018-12-30 06:39] LABS: HEMATOCRIT 31.6 % (37.0-47.0); HEMOGLOBIN 9.8 g/dL (12.0-16.0); IMM GRAN# 0.04 X1000 (0.0-0.04); IMM GRAN% 0.4 % (0.0-0.5); LYMPH# 0.99 X1000 (1.2-3.4); LYMPH% 9.2 % (20.5-51.1); MCH 28.6 PG (27-31); MCV 92.1 FL (81-99); MONO# 0.12 X1000 (0.11-0.59); MONO% 1.1 % (1.7-9.3); MPV 10.6 FL (7.4-10.4); NEUT# 9.66 X1000 (1.4-6.5); NEUT% 89.3 % (42.2-75.2); PLT 306 X1000 (130-400); RBC 3.43 XMIL (4.2-5.4); RDW 14.9 % (11.5-14.5); WBC 10.81 X1000 (4.8-10.8)
[2018-12-30] MEDS: HUMULIN R SUBQ SCH ×5 (06:50→20:14)
[2018-12-30 07:16] LABS: CALCIUM 8.3 mg/dL (8.8-10.2); CREATININE 2.8 mg/dL (0.5-0.9); POTASSIUM 4.3 mmol/L (3.5-5.1)
[2018-12-30 07:24] LABS: BANDS 2 % (0-1); LYMPHS 20 % (21-51); SEGS 78 % (42-75)
--- NOTE | 2018-12-30 07:29 | EKG Report ---
Test Performed on : 12/30/2018 06:55:46 AM Test Reason : tachycardia Blood Pressure : / mmHG Vent. Rate : 097 BPM Atrial Rate : 097 BPM P-R Int : 156 ms QRS Dur : 122 ms QT Int : 412 ms P-R-T Axes : 079 090 088 degrees QTc Int : 523 ms Normal sinus rhythm. Rightward axis Nonspecific intraventricular conduction delay Nonspecific ST abnormality Abnormal ECG When compared with ECG of 29-DEC-2018 17:26, (Unconfirmed) No significant change was found Unconfirmed Result
[2018-12-30] MEDS: ASPIRIN PO SCH (08:45)
[2018-12-30] MEDS: ABILIFY PO SCH (08:45)
[2018-12-30] MEDS: LIPITOR PO SCH (08:45)
[2018-12-30] MEDS: PLAVIX PO SCH (08:45)
[2018-12-30] MEDS: IMDUR PO SCH (08:45)
[2018-12-30] MEDS: NORVASC PO SCH (09:50)
[2018-12-30] MEDS: TOPROL XL PO SCH (09:50)
--- NOTE | 2018-12-30 09:57 | Diag Imaging Result Doc PS360 ---
CHEST-PORTABLE - 12/30/2018 INDICATION: abnormal exam COMPARISON: 12/29/2018 FINDINGS: Stable right chest port. There is been improvement in the diffuse bilateral interstitial infiltrates/pulmonary edema. Stable right perihilar infiltrate otherwise. Heart size is somewhat enlarged. No large pleural effusion. IMPRESSION: Improvement in the pulmonary edema. No new abnormalities. Electronically signed by Bladimir Blanton 12/30/2018 9:55 AM
[2018-12-30] MEDS: NS 1,000 ML IV SCH ×2 (10:27→20:13)
[2018-12-30] MEDS: DOXYCYCLINE 100 MG in NS 250 ML IV SCH ×2 (10:36→22:15)
[2018-12-30] MEDS: XANAX PO PRN ×2 (12:37→18:10)
[2018-12-30] MEDS ORDERED: ATIVAN IV PRN (13:40)
--- NOTE | 2018-12-30 14:04 | PROGRESS NOTE ---
DATE: 12/30/2018 ADVANCE CARE DIRECTIVE: I have had a prolonged conversation with her family, her daughter who specifically states she does not want her resuscitated in the setting of a "heart attack," which her other family member described as cardiac arrest. We described that the likelihood if she gets intubated of coming off the ventilator were low. The daughter would prefer not having to make a decision to take her off the ventilator, so I am confirming a DNR 1 status at this time. Certainly await any input from Pulmonary or other subspecialists. cc: Best Tellez MD
[2018-12-30] MEDS: HALDOL IV PRN (14:11)
--- NOTE | 2018-12-30 14:16 | PROGRESS NOTE ---
DATE: 12/30/2018 SUBJECTIVE: She is a little bit more awake, alert, oriented today, breathing a little bit better. OBJECTIVE: Blood pressure 87/52, heart rate 99, respiratory rate 23, temperature 97.2 degrees, 97% on 40% but she is off BiPAP.Cardiovascular: Tachy but regular. Pulmonary: She has rhonchi, occasional wheezes throughout. Gastrointestinal: Soft, nontender, nondistended. Bowel sounds are positive. LABORATORY DATA: Her white count today is 10, which is a decrease, hemoglobin 9, hematocrit 31, platelets 306,000. Sodium 130, creatinine though is up to 2.8, with a sugar of 365. PROBLEM LIST: 1. Pneumonia, atypical. We will continue antibiotics. She is on Zyvox, Zosyn, doxycycline. Pulmonology is following. I appreciate their assistance. 2. Acute on chronic respiratory failure, hypoxic. She is off BiPAP. We have had prolonged discussions with the family. BiPAP will be the limit of our ventilation options at this point. 3. Elevated troponin due to supply/demand mismatch. We are continuing to monitor. Cardiology is following, not planning any other intervention at this time. It had already been decided previously that she needed a bypass, and she refused. I am not really sure she is stable now. 4. Acute kidney injury which is progressive. I will get a Renal consult. Based on the urine electrolytes, though,this looks more prerenal causes, but could be ATN as well, so we will continue to follow closely. I appreciate consultants' help. cc: Best Tellez MD
--- NOTE | 2018-12-30 21:18 | CARDIOLOGY PROGRESS NOTE ---
DATE: 12/30/2018 SUBJECTIVE: Ms. Botello is off BiPAP today. She reports her breathing is roughly stable from yesterday. She has no other complaints. No pain complaints. OBJECTIVE: The patient is afebrile. Her heart rate is 98, her blood pressure is 98/56. Notably, she has had systolics anywhere from the 50s to the 90s today. Generally she is in no acute distress. Cardiovascular: She sounds to be in a regular rate and rhythm presently. She has no obvious murmur. She has no S3. She has no lower extremity edema. Her chest exam sounds much better compared to yesterday. She has some mild expiratory wheezes. No increased work of breathing. Her abdomen is soft, nontender. LABORATORY DATA: Her sodium is 130, potassium 4.3. BUN 54, creatinine is 2.8, which are both elevated compared to yesterday's. ASSESSMENT: Ms. Botello is a 73-year-old female who presented with respiratory distress. PLAN: At this point there is certainly a concern for continued infectious issues. Her breathing overall appears somewhat better. They have decided not to intubate her in the future if she were to require so. BiPAP will be the maximization of ventilatory support. Her troponin was elevated, and is likely secondary to supply/demand including hypotension in a patient with known severe multivessel coronary disease. Again, she had been recommended for coronary bypass a number of years ago; however, she refused this. Her echocardiogram on 12/28/2018 showed a preserved ejection fraction with wall motion abnormalities in the posterior and inferior wall of the left ventricle, which is consistent with the known severe disease locations. She is continued on aspirin and Plavix as well as high-intensity statin. I have discontinued the amlodipine, considering her blood pressure. We will try to keep her on a low dose of Toprol. cc: Lyndon Gonzalez MD
[2018-12-31] MEDS: SOLU-MEDROL IV SCH ×4 (00:02→23:38)
[2018-12-31] MEDS: ZYVOX 600 MG/D5W 600 MG/300 ML IVPB IV SCH ×2 (00:02→12:21)
[2018-12-31] MEDS: ZOSYN 2.25 GM in NS 50 ML IV SCH ×4 (01:43→20:38)
[2018-12-31] MEDS: DUONEB (A & A) INH SCH ×6 (03:33→23:20)
[2018-12-31] MEDS: HEPARIN SUBQ SCH ×2 (04:22→15:51)
[2018-12-31 06:03] LABS: BASO# 0.01 X1000 (0.0-0.2); EOS# 0.04 X1000 (0.0-0.7); EOS% 0.2 % (0.0-10.0); HEMOGLOBIN 10.6 g/dL (12.0-16.0); IMM GRAN# 0.14 X1000 (0.0-0.04); IMM GRAN% 0.6 % (0.0-0.5); MCH 29.2 PG (27-31); MCHC 31.2 g/dL (33-37); MCV 93.7 FL (81-99); MONO# 1.06 X1000 (0.11-0.59); MONO% 4.6 % (1.7-9.3); MPV 10.4 FL (7.4-10.4); NEUT# 19.96 X1000 (1.4-6.5); NEUT% 87.6 % (42.2-75.2); PLT 376 X1000 (130-400); RBC 3.63 XMIL (4.2-5.4); RDW 15.2 % (11.5-14.5); WBC 22.81 X1000 (4.8-10.8)
[2018-12-31 06:13] LABS: CALCIUM 7.9 mg/dL (8.8-10.2); CREATININE 3.6 mg/dL (0.5-0.9); POTASSIUM 4.1 mmol/L (3.5-5.1)
[2018-12-31] MEDS: NS 1,000 ML IV SCH (06:26)
[2018-12-31] MEDS: HUMULIN R SUBQ SCH ×4 (06:26→20:39)
[2018-12-31 06:42] LABS: LYMPHS 9 % (21-51); MONO 5 % (1-9); SEGS 86 % (42-75)
[2018-12-31] MEDS: XANAX PO PRN ×2 (07:42→22:55)
--- NOTE | 2018-12-31 07:42 | PULMONOLOGY PROGRESS NOTE ---
DATE: 12/30/2018 SUBJECTIVE: The patient is currently off the BiPAP. She does not have increased work of breathing. She appears to be more comfortable than yesterday. She is without specific complaints. OBJECTIVE: Vital Signs: The patient has been afebrile for the last 24 hours. Blood pressure 131/65, heart rate 87, respiratory rate 21, oxygen saturation 96%. HEENT: Pupils are equal and reactive. Oropharynx appears clear. Neck: Supple. Chest: Reveals faint crackles bilaterally. Cardiac: S1, S2. Abdomen: Soft. Extremities: Without edema. LABORATORY DATA: Sodium 130, potassium 4.3, chloride 93, bicarbonate 16, BUN 54, creatinine 2.8. White blood count 10.81, hemoglobin 9.8, platelet count 306,000. MICROBIOLOGY: Reveals no new data. IMAGING: Chest x-ray reveals decreased diffuse bilateral infiltrates. IMPRESSION: A 73-year-old with: 1. Acute hypoxemic respiratory failure. 2. Diabetes mellitus. 3. Non ST-segment elevation myocardial infarction/demand ischemia. 4. Pneumonia. 5. Acute renal failure. PLAN: 1. Continue to cycle BiPAP and face mask for acute hypoxemic respiratory failure. The patient and family have decided not to pursue intubation and mechanical ventilation if she fails BiPAP. 2. Continue broad-spectrum antibiotics. 3. Continue aspirin and Plavix for coronary artery disease. 4. Continue heparin. 5. Guarded prognosis. cc: Isaias Dwyer MD
--- NOTE | 2018-12-31 07:50 | EKG Report ---
Test Performed on : 12/31/2018 07:17:33 AM Test Reason : NSTEMI Blood Pressure : / mmHG Vent. Rate : 098 BPM Atrial Rate : 098 BPM P-R Int : 158 ms QRS Dur : 102 ms QT Int : 408 ms P-R-T Axes : 087 085 124 degrees QTc Int : 520 ms Sinus rhythm. with occasional premature ventricular complexes. Nonspecific ST and T wave abnormality Prolonged QT Abnormal ECG When compared with ECG of 30-DEC-2018 06:55, premature ventricular complexes. are now present Nonspecific T wave abnormality now evident in Inferior leads Unconfirmed Result
[2018-12-31] MEDS: PLAVIX PO SCH (08:36)
[2018-12-31] MEDS: HALDOL IV PRN ×3 (08:36→20:53)
[2018-12-31] MEDS: LIPITOR PO SCH (08:36)
[2018-12-31] MEDS: ASPIRIN PO SCH (08:36)
[2018-12-31] MEDS: ABILIFY PO SCH (08:36)
[2018-12-31] MEDS: TOPROL XL PO SCH (09:34)
[2018-12-31] MEDS: SODIUM BICARBONATE 8.4% IV PUSH SCH ×2 (09:58→15:01)
[2018-12-31] MEDS: DOXYCYCLINE 100 MG in NS 250 ML IV SCH ×2 (11:31→22:16)
--- NOTE | 2018-12-31 12:07 | PROGRESS NOTE ---
DATE: 12/31/2018 SUBJECTIVE: The patient continues to be on BiPAP. He has been restless according to nursing staff, and trying to remove his IV access and BiPAP mask. Upon my examination, she followed basic commands. Answers basic questions. OBJECTIVE: Vitals: Temperature 96.4, heart rate 76, respiratory rate 19, blood pressure 136/66. O2 saturation 99% on BiPAP machine. General: This is a chronically ill- looking, 73-year-old female lying in bed in no acute distress. Cardiovascular: S1, S2 heard. Tachycardic but regular. No murmurs, gallops, or rubs noted. Respiratory: Rhonchi and wheezing all over both pulmonary bases. Patient not using any accessory muscles or having work of breathing. Abdomen: Soft. Nontender to palpation. Nondistended. Bowel sounds present. No organomegaly. Extremities: No clubbing, cyanosis, or edema. Peripheral pulses present in both legs. Neurological: Patient is sleepy but answers to verbal stimuli. Moves all 4 extremities spontaneously. LABORATORY DATA: White cell count 22.31, hemoglobin 10.6, hematocrit 34.0 and platelets 376,000. BMP that shows sodium 133, potassium 3.6. ASSESSMENT AND PLAN: 1. Acute hypoxemic respiratory failure secondary to pneumonia. The patient currently is on Zyvox, Zosyn and doxycycline, and has been followed by pulmonary to cover typical bacteria. I think at this point, we will continue with the same management. Her white cell count has increased to 22,000. She has noticed she is not spiking any fever so at this point, we will continue to monitor BMP. 2. Acute renal failure. Unfortunately creatinine continues to get worse. This has been 2.0 two day's ago, Renal has been consulted. The urine output has been checked since admission. Apparently, she has made 30 mL of urine during the last 24 hours. She has oliguria. We will continue to monitor. 3. Non ST-segment elevation myocardial infarction. Cardiology is following. Patient as we mentioned before, has been recommended to have a left heart catheterization a few years ago but she refused. At this point, cardiology is following. The patient has been placed on Toprol, and not a candidate for any aggressive measures at this point. 4. Diabetes mellitus type 2. We will continue with sliding scale insulin and Accu-Chek's before meals, and also at bedtime. 5. Disposition: We will continue to monitor this patient closely here in the intensive care unit. cc: Rashda Fisher MD MTDD
--- NOTE | 2018-12-31 15:18 | PROVIDER PROGRESS NOTE ---
Progress Note Chief complaint: I couldnt breathe. HPI: Mrs. Botello is a 73-year-old elderly white female with a past medical history of hypertension, diabetes mellitus type two, hyperlipidemia, status post radiation and chemotherapy for non-small cell lung cancer, and COPD. She presented to an urgent care on 12/27/18 with a three day history of increased shortness of breath and persistent cough with clear to yellow sputum. She denied any associated headache, fever, chills, chest pain, or nausea and vomiting. She was diagnosed with pneumonia and received an IM antibiotic. The patients shortness of breath progressed and she presented to the emergency room. Her temperature upon arrival was 99.9. She had an elevated lactate and presented with acute hypoxemic respiratory failure. She underwent a CT pulmonary angiogram which revealed a slight increase in mass area consolidation at the right base with pleural effusions, pericardial effusions, and patchy infiltrates. During this time her respiratory status declined and she was placed on BiPAP in the ICU. Her troponin has trended from 0.508 up to 1.870 with an EF of 55%. Her admitting creatinine was 1.4 and today it is 3.6. Past medical history: status post chemoradiation for non-small cell lung carcinoma, hypertension, diabetes mellitus type two, hyperlipidemia, and COPD Past surgical history: adenocarcinoma lung surgery, hysterectomy, cholecystectomy, neck surgery, ankle surgery. Social history: patient lives at home. She has a 40+ pack year history of smoking but denies any alcohol or illicit drug use. Family history: mother and father positive for coronary artery disease. Allergies: lorazepam and morphine. Home Medications: amlodipine, atorvastatin, Plavix, Cherry, Lasix, glipizide, Novolin 70/30, isosorbide mononitrate, losartan, Metforman, metoprolol. Review of systems: neurological: denies altered mental status or loss of consciousness. Denies confusion. Eyes: denies blurriness, dryness, or change in visual acuity. ENT: denies tinnitus or change in hearing. Integumentary denies color change, rash, itching. Respiratory: admits to increased shortness of breath with productive cough. Denies orthopnea. Cardiovascular: denies chest pain or palpitations. G.I.: denies nausea, vomiting, constipation. : denies change in urine frequency, color, or flow. Endocrine: Denies excessive thirst and hunger. Musculoskeletal: denies increased weakness or extremity pain. Labs: WBC 22.81, hemoglobin 10.6, hematocrit 34, platelet count 376, sodium 133, potassium 4.1, chloride 95, carbon dioxide 16, BUN 74, creatinine 3.6. Urine studies: random creatinine 141.7, random protein 30.2, random sodium 12, random urea nitrogen 432. Intake 3805, output 330. Imaging: [facility] ultrasound yesterday impression small renal cyst, otherwise normal renal ultrasound. Chest x-ray impression improvement in the pulmonary edema. Physical exam: vitals. Temperature 96.4, pulse 81, respirations 20, blood pressure 120/56, 100% on BiPAP. General: chronically ill appearing elderly white female with somewhat labored breathing with head of bed 90 degrees. HEENT: normocephalic, a traumatic, trachea midline, mucous membranes dry, pupils equal and reactive. Skin: warm and dry with multiple bruises in different healing stages noted to upper extremities. Neck: Supple, no JVD an upright position. Cardiovascular: S1, S2 appreciate it with premature beats.No murmurs or gallops. Respiratory: course rhonchi anteriorly with wheezing. Accessory muscles used. Abdominal: obese, soft, nontender, nondistended that sounds present Extremities: one plus pitting edema to bilateral upper extremities with trace bilateral lower extremity edema. : non-inspected, Santiago in place. Neurological: alert and oriented to person, place, and time. Assessment and plan: Acute kidney injury. Fractional excretion of urea on 12/29 was 75% suggestive of acute tubular necrosis likely related to sepsis, IV contrast. Continue fluids with strict I/Os. She does not meet criteria for renal replacement therapy. Nutrition. Diet ordered but not able tolerating eating well due to respiratory status. Ambulation. Unable due to condition. Medications reviewed.
[2018-12-31] MEDS ORDERED: CARDIZEM IV ONE (15:19)
[2018-12-31] MEDS ORDERED: CARDIZEM ONE (15:26)
[2018-12-31] MEDS ORDERED: CARDIZEM 100 MG/NS 100 MG/100 ML IVPB ONE (15:26)
[2018-12-31] MEDS: CARDIZEM 100 MG/NS 100 MG/100 ML IVPB IV SCH (15:43)
--- NOTE | 2018-12-31 16:36 | EKG Report ---
Test Performed on : 12/31/2018 3:14:02 PM Test Reason : AFIB Blood Pressure : / mmHG Vent. Rate : 146 BPM Atrial Rate : 147 BPM P-R Int : 000 ms QRS Dur : 104 ms QT Int : 338 ms P-R-T Axes : 000 081 -04 degrees QTc Int : [address] depression, consider subendocardial injury Abnormal QRS-T angle, consider primary T wave abnormality Abnormal ECG When compared with ECG of 31-DEC-2018 07:17, (Unconfirmed) premature ventricular complexes. are no longer present Vent. rate has increased BY [address] more depressed in Anterior leads Nonspecific T wave abnormality no longer evident in Lateral leads Unconfirmed Result
[2019-01-01] MEDS: ZYVOX 600 MG/D5W 600 MG/300 ML IVPB IV SCH ×2 (00:11→16:35)
[2019-01-01] MEDS: ZOSYN 2.25 GM in NS 50 ML IV SCH ×3 (01:53→19:19)
[2019-01-01] MEDS: DUONEB (A & A) INH SCH ×6 (03:22→23:16)
[2019-01-01] MEDS: HEPARIN SUBQ SCH ×2 (03:38→16:36)
--- NOTE | 2019-01-01 04:22 | PULMONOLOGY PROGRESS NOTE ---
DATE: 12/31/2018 SUBJECTIVE: The patient is arousable to alert. She is on BiPAP. Her family reports she has had a difficult day. OBJECTIVE: Vital Signs: The patient has been afebrile for the last 24 hours. Blood pressure 103/55, heart rate 75, respiratory rate 16, oxygen saturation 99%. HEENT: Pupils are equal and reactive. Oropharynx appears clear. Neck: Supple. Chest: Reveals coarse rhonchi bilaterally. Cardiac: Exam with distant heart sounds. Normal S1, normal S2. Abdomen: Soft. Extremities: Without edema. LABORATORIES: Arterial blood gas was not obtained today. Chemistry: Sodium 133, potassium 4.1, chloride 95, bicarbonate 16, BUN 74, and creatinine 3.6. IMPRESSION: A 73-year-old with: 1. Acute hypoxemic respiratory failure. 2. Pneumonia. 3. Diabetes mellitus. 4. Three-vessel coronary artery disease without intervention with non ST-segment elevation myocardial infarction. 5. Acute renal failure. PLAN: 1. Continue to cycle BiPAP at bedtime and p.r.n. 2. Continue broad-spectrum antibiotics. 3. Continue aspirin and Plavix. 4. Prognosis is guarded. Family has held end of life discussions, and she will be allowed to have a natural if she dies during this hospitalization. cc: Isaias Dwyer MD
[2019-01-01] MEDS: HALDOL IV PRN ×3 (05:41→21:17)
[2019-01-01] MEDS: CARDIZEM 100 MG/NS 100 MG/100 ML IVPB IV SCH (05:41)
[2019-01-01] MEDS: HUMULIN R SUBQ SCH ×4 (06:20→20:41)
--- NOTE | 2019-01-01 07:29 | Diag Imaging Result Doc PS360 ---
EXAM: CHEST-PORTABLE INDICATION: respiratory failure TECHNIQUE: One view COMPARISON: 12/30/2018 FINDINGS: The right chest port is in stable position. The diffuse pulmonary edema is approximately stable. There may have been slight improvement in the right perihilar infiltrate. No new consolidation is identified. Cardiac silhouette is stable. IMPRESSION: Likely slight improvement of right perihilar infiltrate. Stable chest, otherwise. Electronically signed by Isai Ziegler 01/01/2019 7:26 AM
[2019-01-01] MEDS: SOLU-MEDROL IV SCH ×2 (09:19→16:35)
[2019-01-01] MEDS: ASPIRIN PO SCH (09:20)
[2019-01-01] MEDS: ABILIFY PO SCH (09:20)
[2019-01-01] MEDS: PLAVIX PO SCH (09:21)
[2019-01-01] MEDS: LIPITOR PO SCH (09:21)
[2019-01-01] MEDS: TOPROL XL PO SCH (09:21)
[2019-01-01 09:52] LABS: HEMATOCRIT 32.5 % (37.0-47.0); HEMOGLOBIN 10.5 g/dL (12.0-16.0); IMM GRAN# 0.17 X1000 (0.0-0.04); IMM GRAN% 0.9 % (0.0-0.5); LYMPH# 1.48 X1000 (1.2-3.4); LYMPH% 7.8 % (20.5-51.1); MCH 29.2 PG (27-31); MCHC 32.3 g/dL (33-37); MCV 90.5 FL (81-99); MONO# 0.83 X1000 (0.11-0.59); MONO% 4.4 % (1.7-9.3); MPV 10.2 FL (7.4-10.4); NEUT# 16.59 X1000 (1.4-6.5); NEUT% 86.9 % (42.2-75.2); PLT 372 X1000 (130-400); RBC 3.59 XMIL (4.2-5.4); RDW 15.4 % (11.5-14.5); WBC 19.07 X1000 (4.8-10.8)
[2019-01-01 10:29] LABS: LYMPHS 12 % (21-51); MONO 2 % (1-9); SEGS 86 % (42-75)
[2019-01-01 10:55] LABS: PHOSPHORUS 6.7 mg/dL (2.7-4.5)
[2019-01-01 11:06] LABS: ALB/GLOB RATIO 1.1; ALBUMIN 3.3 g/dL (3.5-5.0); CALCIUM 8.1 mg/dL (8.8-10.2); CREATININE 4.3 mg/dL (0.5-0.9); POTASSIUM 3.8 mmol/L (3.5-5.1); TOTAL BILIRUBIN 0.21 mg/dL (0.20-1.00); TOTAL PROTEIN 6.4 g/dL (6.3-8.3)
[2019-01-01] MEDS: DOXYCYCLINE 100 MG in NS 250 ML IV SCH ×2 (11:46→23:01)
--- NOTE | 2019-01-01 12:09 | PROGRESS NOTE ---
DATE: 01/01/2019 SUBJECTIVE: Patient continues to be on BiPAP. She is alert and awake. Denies any complaints at this time. According to the nursing staff, she has been eating her breakfast but she becomes short of breath while she was not on BiPAP so BiPAP mask was put back immediately. OBJECTIVE: Vital Signs: Temperature 97.6 degrees, heart rate 78, respiratory 15, blood pressure 114/52, O2 saturation 98% on Venturi mask. General: This is a chronically ill-looking, 73-year- old female, lying in bed, in no acute distress. Cardiovascular: S1, S2 heard. Tachycardic. Irregular. No murmurs, gallops or rubs. Respiratory: Rhonchi and wheezing noted all over both pulmonary mahoney. Patient is not using any accessory muscles or having work of breathing. Abdomen: Soft, nontender to palpation. Bowel sounds present. No organomegaly. Extremities: No clubbing, cyanosis, or edema. Peripheral pulses present in both legs. Neurological: Patient is a little bit sleepy but answers to verbal stimuli quickly. Moves 4 extremities spontaneously. Follows commands. LABORATORY DATA: All of them pending at time of my dictation. ASSESSMENT AND PLAN: 1. Acute hypoxemic respiratory failure secondary to pneumonia. Currently, this patient is on Zosyn, Zyvox and doxycycline. Pulmonary is following this patient. The white cell count from yesterday was 22,000. I do not know what is the white cell count today. In any case, the patient is not spiking any fever so we will continue with the same management. 2. Acute renal failure. We do not have results from today. Creatinine continues to get worse for the last few days. We do not have any labs from this morning. Ins and outs indicate that she has made 225 mL of urine over the last [address] Dumont from Nephrology has been consulted. We will follow recommendations. 3. Non ST-segment elevation myocardial infarction. Cardiology is following. She is on Plavix and aspirin. They are not planning to do anything invasive at this time. We will continue to monitor. 4. Diabetes mellitus type 2. We will continue with sliding scale insulin and Accu-Chek before meals and also at bedtime. 5. Disposition. This patient appears to be critically ill. The patient is DNR level 1. We will continue to monitor this patient closely here in the intensive care unit. cc: Rashad Fisher MD
[2019-01-01] MEDS: XANAX PO PRN ×2 (12:29→19:54)
[2019-01-01] MEDS ORDERED: NICODERM PATCH TD PRN (14:39)
--- NOTE | 2019-01-01 19:28 | CARDIOLOGY PROGRESS NOTE ---
DATE: 01/01/2019 SUBJECTIVE: Ms. Botello is still a bit anxious today. She has been receiving Haldol as well as benzodiazepines. She has no pain complaints. She continues to complain of shortness of breath. PHYSICAL EXAMINATION: Vital signs: She is afebrile. Her heart rates have been primarily in the 70s to 90s. During my examination, they were a bit higher in the low 100s, blood pressure 115/62. Her O2 saturations have been in the mid to high 90s. General: She is in mild distress secondary to anxiety. Cardiovascular: She is in a mildly tachycardic but regular rhythm. She has no obvious murmurs. She has no S3. Respiratory: She has bilateral end expiratory wheezes noted on her chest exam. She has no increased work of breathing. Gastrointestinal: Her abdomen is soft, nontender. PERTINENT DATA: She has some improvement in right perihilar infiltrates on the chest x-ray. Her laboratory data demonstrates a white count of 19, hematocrit of 32, her platelet count is 372,000. She has a left shift. Her sodium is 136, potassium 3.8, BUN 89, creatinine is 4.3 which is up from 3.6. Her creatinine is up from 3.6 yesterday. ASSESSMENT: Ms. Botello is a 73-year-old female with pneumonia. She had an episode of SVT yesterday that terminated with diltiazem. She has a pneumonia and acute kidney injury presently. PLAN: She has non-revascularizable coronary disease. She continues to have worsening of her renal function. At this point, I do not have any acute cardiovascular recommendations other than supportive care. Considering her history of tobacco abuse, I will place a nicotine patch to see if that helps with some of her anxiety. cc: Lyndon Gonzalez MD
--- NOTE | 2019-01-01 21:49 | OPERATIVE NOTE ---
PROCEDURE DATE: 01/01/2019 PREOPERATIVE DIAGNOSIS: Renal insufficiency with volume overload and electrolyte abnormalities. POSTOPERATIVE DIAGNOSIS: Renal insufficiency with volume overload and electrolyte abnormalities. PROCEDURE PERFORMED: Right femoral vein Vas-Cath placement. ESTIMATED BLOOD LOSS: 10 mL. SPECIMENS: None. ANESTHESIA: Local. INDICATIONS: 73-year-old female who has multiple medical issues. She developed acute kidney injury related to IV contrast, and plans to start renal replacement therapy. OPERATIVE FINDINGS: She is obese with a large pannus. She is on Plavix. As such, we elected a femoral approach. OPERATIVE NOTE: Risks, benefits, and alternatives were discussed with the patient and her family, and both consented to the procedure. Her pannus was positioned using silk tape to expose her right groin, and was prepped with chlorhexidine solution and draped in the usual fashion. After time-out, we palpated her femoral pulse and accessed the vein medial to this. Dark nonpulsatile venous blood was noted on return. The wire threaded easily. Skin marito was made. The tract was dilated and a preflushed catheter was advanced. Both ports withdrew and flushed without resistance. Sterile caps were applied and secured with nylon suture. Dressing was applied. She tolerated it well. No complications. cc: Hansel Norwood MD
--- NOTE | 2019-01-01 21:57 | NEPHROLOGY PROGRESS NOTE ---
DATE: 01/01/2019 SUBJECTIVE: She is sitting up. Awake, conversant. No shortness of breath. OBJECTIVE: Vital Signs: Blood pressure 115/62, heart rate 92, respirations 27, afebrile. General: No acute distress. Skin: Warm and dry. heart: Regular. Lungs: Equal. Abdomen: Benign. Extremities: 2+ edema. IMPRESSION: Oliguric acute kidney injury. No recovery. I counseled the patient and her family that she has acute kidney injury that will likely meet criteria for dialysis in the next 24 hours. I discussed dialysis as standard treatment for management of her uremia and volume status. They understand and are ready to proceed. I have contacted Dr. Norwood, who will place a Vas-Cath. cc: Rogelio Dumont MD
[2019-01-02] MEDS: SOLU-MEDROL IV SCH ×3 (01:03→17:03)
[2019-01-02] MEDS: ZOSYN 2.25 GM in NS 50 ML IV SCH ×4 (01:03→18:15)
[2019-01-02] MEDS: DUONEB (A & A) INH SCH ×6 (03:14→23:06)
[2019-01-02] MEDS: HEPARIN SUBQ SCH ×2 (04:36→17:02)
[2019-01-02] MEDS: ZYVOX 600 MG/D5W 600 MG/300 ML IVPB IV SCH ×2 (04:36→17:11)
[2019-01-02] MEDS: XANAX PO PRN ×4 (05:20→23:22)
[2019-01-02 06:13] LABS: HEMATOCRIT 31.5 % (37.0-47.0); HEMOGLOBIN 10.1 g/dL (12.0-16.0); IMM GRAN# 0.13 X1000 (0.0-0.04); IMM GRAN% 0.9 % (0.0-0.5); LYMPH# 1.31 X1000 (1.2-3.4); MCH 29.2 PG (27-31); MCHC 32.1 g/dL (33-37); MONO# 0.42 X1000 (0.11-0.59); MONO% 2.9 % (1.7-9.3); MPV 10.2 FL (7.4-10.4); NEUT# 12.73 X1000 (1.4-6.5); NEUT% 87.2 % (42.2-75.2); PLT 345 X1000 (130-400); RBC 3.46 XMIL (4.2-5.4); RDW 15.5 % (11.5-14.5); WBC 14.59 X1000 (4.8-10.8)
[2019-01-02] MEDS: HUMULIN R SUBQ SCH ×6 (06:40→20:17)
[2019-01-02] MEDS ORDERED: NS 2,000 ML MISC PRN (06:46)
[2019-01-02 07:27] LABS: ALB/GLOB RATIO 1.1; CALCIUM 7.9 mg/dL (8.8-10.2); TOTAL BILIRUBIN 0.2 mg/dL (0.20-1.00); TOTAL PROTEIN 5.8 g/dL (6.3-8.3)
--- NOTE | 2019-01-02 08:52 | Diag Imaging Result Doc PS360 ---
CHEST-PORTABLE - 01/02/2019 INDICATION: respiratory failure COMPARISON: 01/01/2019 FINDINGS: Stable right chest port in good position. There is increased density of the central infiltrates or atelectasis bilaterally. There is a small left pleural effusion. Heart size remains top normal. IMPRESSION: Slight increased density of the central infiltrates, atelectasis, or edema. Electronically signed by Bladimir Blanton 01/02/2019 8:50 AM
[2019-01-02] MEDS: LIPITOR PO SCH (09:28)
[2019-01-02] MEDS: HALDOL IV PRN ×3 (09:28→22:13)
[2019-01-02] MEDS: ABILIFY PO SCH (09:28)
[2019-01-02] MEDS: ASPIRIN PO SCH (09:29)
[2019-01-02] MEDS: TOPROL XL PO SCH (09:29)
[2019-01-02] MEDS: PLAVIX PO SCH (09:29)
--- NOTE | 2019-01-02 11:26 | PROGRESS NOTE ---
DATE: 01/02/2019 SUBJECTIVE: Ms. Botello presented on 12/28/2018, presented with shortness of breath and coughing for 3 days. A 73-year-old female with history of hypertension, diabetes mellitus type 2, hyperlipidemia, presented to the emergency department with a 3-day history of worsening shortness of breath, persistent cough. Stated she had productive yellowish material, was having difficulty breathing. Evaluation in the emergency department showed what appeared to be atypical pneumonia, and was admitted. Past medical history again includes hypertension, diabetes mellitus type 2, hyperlipidemia. She was admitted with atypical pneumonia, sepsis, elevated troponin, hypertension, diabetes mellitus type 2. OBJECTIVE: General: Today she is lethargic. Vital signs: She remains afebrile, temperature 97.6 degrees, pulse 111, respirations 25, blood pressure 126/66. HEENT: Pupils are equal and round. Lungs: Clear in all lung mahoney. Cardiovascular: Regular rhythm and rate without murmur or S3. Urine output: 410 mL. ASSESSMENT AND PLAN: 1. Acute hypoxemic respiratory failure. She continues cyclic BiPAP, face mask for acute hypoxemic respiratory failure. The family have decided not to pursue intubation or mechanical ventilation if she fails BiPAP. Continue broad-spectrum antibiotics. She is on aspirin and Plavix for coronary artery disease, and continue present heparin. 2. Cardiology is following. Her troponin was elevated, probably secondary to supply/demand mismatch including hypotension, has severe multivessel coronary artery disease. She has been recommended for coronary artery bypass a number of years ago; however, she refuses. Echocardiogram on 12/28/2018 showed preserved ejection fraction and wall motion abnormalities with one wall motion abnormality in the posteroinferior wall of the left ventricle consistent with her known severe coronary artery disease. Continue aspirin and Plavix. 3. 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 She does not want her resuscitated in case of heart attack or code. The daughter did not want her to go on the ventilator and they confirmed a DNR 1 status. REVIEW OF HER ORDERS: She is on Xanax 0.5 mg q.6 and I think we can change that to q.4 p.r.n., Abilify 2 mg daily, aspirin 81 mg a day, Atorvastatin 80 mg a day, Plavix 75 mg a day, Cardizem IV, doxycycline 100 mg IV q.12 hours, methylprednisone 60 mg IV q.8, metoprolol 12.5 mg p.o. daily, nicotine patch 21 mg a day, Zosyn 2.25 g IV q.6 and linezolid 600 mg IV q.12. Cultures with no growth from 12/28/2018 from the urine or from the blood. cc: Barry Weller MD
[2019-01-02] MEDS: DOXYCYCLINE 100 MG in NS 250 ML IV SCH ×2 (11:42→22:10)
--- NOTE | 2019-01-02 17:23 | NEPHROLOGY PROGRESS NOTE ---
DATE: 01/02/2019 SUBJECTIVE: She does not feel well at all today. She has general myalgias. Not short of breath. OBJECTIVE: Vital Signs: Blood pressure 126/66, heart rate 111, respirations 25, afebrile. Intake 1.8 L; output 200 mL. General: Acutely ill. Skin: Warm and dry. Eyes: Conjunctivae are pink. Neck: Neck veins are not appreciated. Heart: Irregular and tachycardic. Lungs: Equal, coarse. No crackles. Abdomen: Soft, nontender. Decreased bowel sounds. Extremities: With 2+ edema. No clubbing or cyanosis. IMPRESSION: Acute kidney injury. No recovery. Oliguric. Moderate metabolic acidosis. Slow, low efficiency dialysis today. She is currently on therapy. Goal of 4 liters ultrafiltration, 4 potassium bath, 30 bicarbonate. cc: Rogelio Dumont MD
[2019-01-03] MEDS: SOLU-MEDROL IV SCH ×3 (01:06→16:33)
[2019-01-03] MEDS: ZOSYN 2.25 GM in NS 50 ML IV SCH ×4 (01:06→18:18)
[2019-01-03] MEDS: DUONEB (A & A) INH SCH ×6 (03:13→22:43)
[2019-01-03] MEDS: ZYVOX 600 MG/D5W 600 MG/300 ML IVPB IV SCH ×2 (04:16→16:47)
[2019-01-03] MEDS: HEPARIN SUBQ SCH ×2 (04:16→16:34)
[2019-01-03] MEDS: HALDOL IV PRN ×2 (04:17→20:32)
[2019-01-03] MEDS: XANAX PO PRN (05:21)
[2019-01-03] MEDS ORDERED: CARDIZEM ONE (05:54)
[2019-01-03] MEDS ORDERED: CORDARONE 360 MG/D5W 360 MG/200 ML IV.SOLN IV ONE (05:54)
[2019-01-03] MEDS ORDERED: CORDARONE 150 MG/D5W 150 MG/100 ML IV.SOLN ONE (06:01)
[2019-01-03] MEDS ORDERED: CORDARONE 360 MG/D5W 360 MG/200 ML IV.SOLN ONE (06:01)
[2019-01-03] MEDS ORDERED: NS 1,000 ML ONE (06:02)
[2019-01-03 06:03] LABS: BASO# 0.02 X1000 (0.0-0.2); BASO% 0.1 % (0.0-0.8); HEMATOCRIT 32.7 % (37.0-47.0); HEMOGLOBIN 10.3 g/dL (12.0-16.0); IMM GRAN# 0.19 X1000 (0.0-0.04); IMM GRAN% 0.9 % (0.0-0.5); LYMPH# 1.81 X1000 (1.2-3.4); LYMPH% 8.3 % (20.5-51.1); MCH 28.9 PG (27-31); MCHC 31.5 g/dL (33-37); MCV 91.6 FL (81-99); MONO# 1.49 X1000 (0.11-0.59); MONO% 6.9 % (1.7-9.3); MPV 10.3 FL (7.4-10.4); NEUT# 18.19 X1000 (1.4-6.5); NEUT% 83.8 % (42.2-75.2); PLT 339 X1000 (130-400); RBC 3.57 XMIL (4.2-5.4); RDW 16.4 % (11.5-14.5)
[2019-01-03 06:15] LABS: ALB/GLOB RATIO 1.1; ALBUMIN 3.1 g/dL (3.5-5.0); CALCIUM 8.4 mg/dL (8.8-10.2); CREATININE 3.2 mg/dL (0.5-0.9); POTASSIUM 4.7 mmol/L (3.5-5.1); TOTAL BILIRUBIN 0.3 mg/dL (0.20-1.00)
[2019-01-03] MEDS ORDERED: CORDARONE 150 MG/D5W 150 MG/100 ML IV.SOLN IV ONE (06:17)
[2019-01-03 06:25] LABS: ALLEN TEST YES; BE -12.2 mmoll (-3.0-3.0); BLOOD TYPE ARTERIAL; HCO3-(ACT) 15.2 mmoll (20.0-26.0); O2(CT) 11.3 mL/dL (15.0-23.0); PCO2(98.6) 25 mmHg (35-45); SAMPLE BLOOD; SAO2 89.2 % (95.0-100.0); THB 9.4 g/dL (11.5-17.4); pH(98.6) 7.31 (7.35-7.45)
[2019-01-03 06:27] LABS: MODALITY BI PAP; O2HB 85.9 % (95.0-99.0); PO2(98.6) 40 mmHg (60-100)
[2019-01-03] MEDS ORDERED: NS 500 ML IV ONE (06:27)
[2019-01-03] MEDS: HUMULIN R SUBQ SCH ×4 (06:38→20:32)
[2019-01-03 06:51] LABS: MAGNESIUM 1.9 mg/dL (1.5-2.7)
[2019-01-03 06:55] LABS: CK INDEX 5.8 (0.0-2.5); CK-MB 44.57 ng/mL (0.0-5.0)
[2019-01-03 07:02] LABS: LYMPHS 4 % (21-51); MONO 4 % (1-9); SEGS 92 % (42-75)
--- NOTE | 2019-01-03 07:37 | PROGRESS NOTE ---
DATE: 01/03/2019 At approximately 0540 this morning, I was notified by the patient's nurse that she had an acute change in her rhythm. The patient did have a tachycardia, which did appear to be a wide QRS tachycardia on the monitor. They did do an EKG, which confirmed this. Her heart rate was at 174. Blood pressure was 99/63, with a MAP of 75. The patient was reporting some chest pain, as well as the feeling that her heart was racing. She does have a history of coronary artery disease, congestive heart failure, pneumonia with hypoxic respiratory failure, currently on BiPAP. She also does have acute renal failure, and did receive dialysis yesterday. We did go ahead and order stat labs of CBC, CMP, magnesium, troponin, and CK, as well as an arterial blood gas. I did speak with Dr. Connors, and quickly updated him on the patient's some change in condition. He did review her EKG as well. We did place the patient on amiodarone. We gave her a 150 mg bolus over 10 minutes, and did order the continuous drip as well. We also did give her a normal saline bolus of 500 mL IV, and did order Prieto-Synephrine if needed in case she became hypotensive. They did page Dr. Madison with Cardiology as well. He did return the page, and did agree with what we had initiated. Immediately after giving the patient her 150 mg amiodarone bolus over 10 minutes, the patient's heart rate did improve. She did slowly decline from heart rate in the 170s, down to 102 to 106. She also did convert back to a narrow complex rhythm. We did do a repeat EKG. Most recent EKG, when compared to the most recent one that was performed on 12/31/2018, there do not appear to be any acute changes at this time. The patient does report that she feels better since her heart rate has come down, though still is experiencing some chest pain, though this has improved as well. Repeat arterial blood gases did show that she had a PO2 of 40%. These were drawn on BiPAP with a 30% FiO2. She has since had her oxygen increased to 100% at this time. A chest x-ray performed this morning though still does show infiltrates that were previously present on yesterday's chest x-ray. There do not appear to be any acute changes, but we are awaiting official radiology over-read. We are awaiting the patient's laboratory results from this morning, though at this time, her condition has improved. We will continue to monitor closely. She will remain in the ICU. Further orders and recommendations pending hospital course, diagnostic studies, and physician evaluation. TIME SPENT: Critical care time on this patient was 45 minutes. Dictated by GARFIELD Bran for Jose Connors MD cc: Jose Connors MD MTDD
--- NOTE | 2019-01-03 08:06 | PROGRESS NOTE ---
DATE: 01/03/2019 SUBJECTIVE: Ms. Botello went into what appeared to be supraventricular tachycardia last night. Blood pressure dropped a little bit, had to put her back on some Prieto-Synephrine I believe for a short time, and then she was started on some amiodarone. OBJECTIVE: Vital Signs: Temperature is afebrile, temp this morning 96.6 degrees, pulse 86, respirations 19, blood pressure 85/46. HEENT: Pupils are equal and round. Lungs: Clear in all lung mahoney. Cardiovascular: Regular rhythm and rate without murmur or S3. Urine output is almost 3000 mL. ASSESSMENT AND PLAN: 1. She appeared to have a wide QRS tachycardia apparently last night, and they put her on some amiodarone. They suspected supraventricular tachycardia with aberrant conduction, but heart rate was 174, blood pressure dropped to 99/63, with a MAP of 75. The patient was reporting some chest pain. Her troponins are elevated again. 2. Acute kidney injury, oliguric. Had sustained low-efficiency dialysis therapy yesterday, not making much urine output. 3. Acute hypoxemic respiratory failure, on cyclic bilevel positive airway pressure and supplementary oxygen for hypoxemic respiratory failure. Family did not want to pursue intubation, so continue bilevel positive airway pressure as we can. ORDERS: I do not see any change. She is on Abilify 2 mg p.o. daily, aspirin 81 mg a day, Lipitor 80 mg a day, Plavix 75 mg a day, was bolused with 500 I think mg of Cordarone or amiodarone, and now on a Cordarone drip. She is on Lipitor 80 mg a day, aspirin 81 mg a day, getting doxycycline 100 mg IV every 12 hours, heparin 5000 units subcutaneously every 12 hours, methylprednisone 40 mg IV every 8 hours, on low dose of Prieto-Synephrine, nicotine patch 21 mg patch daily p.r.n., linezolid 600 mg every 12 hours. Blood cultures from 12/27/2018 have not grown anything. Urine culture from 12/28/2018, catheterized urine culture has not grown anything. cc: Barry Weller MD
--- NOTE | 2019-01-03 08:44 | Diag Imaging Result Doc PS360 ---
CHEST-PORTABLE - 01/03/2019 INDICATION: respiratory failure COMPARISON: 01/02/2019 FINDINGS: Stable right chest port in good position. Stable cardiomegaly and pulmonary vascular congestion. Stable central interstitial pulmonary edema. Stable small left pleural effusion. IMPRESSION: No change from prior. Electronically signed by Bladimir Blanton 01/03/2019 8:42 AM
[2019-01-03] MEDS: LIPITOR PO SCH (09:10)
[2019-01-03] MEDS: ABILIFY PO SCH (09:11)
[2019-01-03] MEDS: PLAVIX PO SCH (09:11)
[2019-01-03] MEDS: TOPROL XL PO SCH ×2 (09:11→20:32)
[2019-01-03] MEDS: ASPIRIN PO SCH (09:11)
[2019-01-03 11:10] LABS: HEPATITIS PROFILE ACUTE SEE COMMENTS
[2019-01-03] MEDS: DOXYCYCLINE 100 MG in NS 250 ML IV SCH ×2 (11:35→23:25)
[2019-01-03] MEDS ORDERED: CORDARONE 540 MG in D5W 289.2 ML IV ONE (11:54)
[2019-01-04] MEDS: SOLU-MEDROL IV SCH ×3 (01:11→16:57)
[2019-01-04] MEDS: XANAX PO PRN ×3 (01:12→19:36)
[2019-01-04] MEDS: ZOSYN 2.25 GM in NS 50 ML IV SCH ×4 (01:12→18:16)
[2019-01-04] MEDS: DUONEB (A & A) INH SCH ×6 (03:16→23:25)
[2019-01-04] MEDS: HEPARIN SUBQ SCH ×2 (04:40→16:57)
[2019-01-04] MEDS: ZYVOX 600 MG/D5W 600 MG/300 ML IVPB IV SCH ×2 (04:40→18:04)
[2019-01-04] MEDS: HUMULIN R SUBQ SCH ×4 (06:04→20:07)
[2019-01-04 06:13] LABS: BASO# 0.02 X1000 (0.0-0.2); BASO% 0.1 % (0.0-0.8); HEMATOCRIT 30.8 % (37.0-47.0); IMM GRAN# 0.22 X1000 (0.0-0.04); IMM GRAN% 0.8 % (0.0-0.5); LYMPH# 1.83 X1000 (1.2-3.4); LYMPH% 6.8 % (20.5-51.1); MCH 29.2 PG (27-31); MCHC 32.5 g/dL (33-37); MCV 89.8 FL (81-99); MONO# 0.94 X1000 (0.11-0.59); MONO% 3.5 % (1.7-9.3); MPV 10.3 FL (7.4-10.4); NEUT# 24.01 X1000 (1.4-6.5); NEUT% 88.8 % (42.2-75.2); PLT 303 X1000 (130-400); RBC 3.43 XMIL (4.2-5.4); RDW 16.2 % (11.5-14.5); WBC 27.02 X1000 (4.8-10.8)
--- NOTE | 2019-01-04 07:01 | Diag Imaging Result Doc PS360 ---
EXAM: CHEST-PORTABLE 01/04/2019 HISTORY: respiratory failure TECHNIQUE: AP portable semiupright chest at 0456 COMMENT: There is cardiomegaly and interstitial and alveolar opacity in both lungs. The right costophrenic angle is not included on the image. There is slightly improved visualization of the left heart border otherwise are has been no significant change since 01/03/2019. IMPRESSION: Minimally improved pulmonary edema. Electronically signed by Fermin Rivera 01/04/2019 6:58 AM
[2019-01-04 07:03] LABS: ALB/GLOB RATIO 1.2; ALBUMIN 3.2 g/dL (3.5-5.0); CALCIUM 8.7 mg/dL (8.8-10.2); CREATININE 4.1 mg/dL (0.5-0.9); POTASSIUM 4.5 mmol/L (3.5-5.1); TOTAL BILIRUBIN 0.23 mg/dL (0.20-1.00); TOTAL PROTEIN 5.8 g/dL (6.3-8.3)
[2019-01-04] MEDS: PLAVIX PO SCH (09:16)
[2019-01-04] MEDS: LIPITOR PO SCH (09:16)
[2019-01-04] MEDS: ASPIRIN PO SCH (09:16)
[2019-01-04] MEDS: ABILIFY PO SCH (09:16)
[2019-01-04] MEDS: TOPROL XL PO SCH ×2 (09:17→16:58)
[2019-01-04] MEDS: DOXYCYCLINE 100 MG in NS 250 ML IV SCH ×2 (10:00→22:19)
--- NOTE | 2019-01-04 10:40 | NEPHROLOGY PROGRESS NOTE ---
DATE: 01/04/2019 SUBJECTIVE: Patient had an episode of wide QRS with tachycardia and SVT over the weekend. Patient initiated on amiodarone drip. This has just been discontinued this morning and changed to oral. Patient today is on a Ventimask. She nods yes and no but really has been able to give us any direction as far as her desires on care plan. OBJECTIVE: Vital Signs: Temperature 97 degrees, pulse 87, respiratory rate 25, blood pressure 140/43. Intake 1.6 L, output 35 mL via Santiago catheter. General: This is a acutely ill-appearing elderly female, resting in bed. She is minimally responsive. Nodding yes and no but no further information is elicited. HEENT: Normocephalic, atraumatic. Oral mucosa moist. She does have a Ventimask on. Neck: Supple with positive JVD. Cardiovascular: She currently has a regular rhythm. Pulmonary: She has wheezes bilateral upper lobe. Significantly decreased breath sounds to middle and lower lobes. Abdomen: Obese, soft with positive bowel sounds. : Santiago catheter with clear urine. Extremities: She has trace edema. Integumentary: Skin is warm and dry. LABORATORY DATA: WBC of 27, hemoglobin 10. Sodium 139, potassium 4.5, CO2 16, creatinine 4.1, albumin 3.2. ASSESSMENT AND PLAN: 1. Acute kidney injury without recovery. We initiated dialysis over the weekend. She just had her amiodarone drip discontinued. She obviously has some fluid on that needs to be removed, may assist with respiratory status. The patient has been made a Do Not Resuscitate, will not be intubated. I had a long discussion with the family that was at the bedside in regards to quantity versus quality of life and the role of dialysis. The family appears to be making some decisions as far as the aggressiveness of her other therapies as it appears her cardiac options are limited and likely mostly supportive care. 2. Electrolytes, acid-base balance. She continues with some modest acidosis. We will try to plan for short SLED treatment today. Again, we will discuss with the family continuing with her plan of care. Dictated by GARFIELD Parker for Rogelio Dumont MD Face to face encounter, data reviewed, discussed with Kristen Ovalles on 01/04/19. I agree with the above assessment and plan of care. cc: Rogelio Dumont MD [facility]
--- NOTE | 2019-01-04 11:38 | EKG Report ---
Test Performed on : 01/03/2019 06:13:59 AM Test Reason : RHYTHM CHANGE Blood Pressure : / mmHG Vent. Rate : 102 BPM Atrial Rate : 102 BPM P-R Int : 162 ms QRS Dur : 086 ms QT Int : 350 ms P-R-T Axes : 078 072 185 degrees QTc Int : [address] & T wave abnormality, consider anterior ischemia Abnormal ECG When compared with ECG of 03-JAN-2019 05:39, (Unconfirmed) Sinus rhythm. has replaced Wide QRS tachycardia. Vent. rate has decreased BY 72 BPM Unconfirmed Result
--- NOTE | 2019-01-04 11:38 | EKG Report ---
Test Performed on : 01/03/2019 05:39:22 AM Test Reason : RHYTHM CHANGE Blood Pressure : / mmHG Vent. Rate : 174 BPM Atrial Rate : 174 BPM P-R Int : 000 ms QRS Dur : 140 ms QT Int : 300 ms P-R-T Axes : 000 168 054 degrees QTc Int : 510 ms Wide QRS tachycardia. Right bundle branch block Possible Lateral infarct , age undetermined Abnormal ECG When compared with ECG of 31-DEC-2018 15:14, Wide QRS tachycardia. has replaced Sinus rhythm. Unconfirmed Result
--- NOTE | 2019-01-04 12:37 | PROGRESS NOTE ---
DATE: 01/04/2019 SUBJECTIVE: Ms. Botello is a little more alert. She is still on a BiPAP. Her blood pressures have stayed a little better. OBJECTIVE: Vital Signs: Remains afebrile, temperature 97 degrees, pulse 79, respirations 19, blood pressure 107/42. Eyes: Pupils are equal and round. Lungs: Lungs are clear in all lung mahoney. Cardiovascular exam: Regular rhythm and rate without murmur or S3. : Urine output was 2800 mL. ASSESSMENT AND PLAN: 1. Acute kidney injury without recovery. Dialysis has been initiated over the weekend. She just had her amiodarone drip discontinued, and still has some fluid to be removed to help her with her respiratory status. The patient has been made a do not resuscitate. Dr. Dumont had a long discussion with family at the bedside in regards to quantity versus quality of life, role of dialysis, and family appears to be making some decisions as far as the aggressiveness of her therapies. It appears that her cardiac options are limited and most likely will pursue supportive care. 2. Electrolytes, acid-base balance. Continues modest acidosis. I think the plan is to do short slow, low efficiency dialysis treatment today. 3. Chest x-ray today: Minimally improved pulmonary edema. 4. Hypoxemic respiratory failure on cyclic bilevel positive airway pressure and supplementary oxygen. 5. She appeared to have a wide QRS complex. They started amiodarone for a time; this has been stopped. REVIEW OF HER ORDERS: She is on Xanax 0.5 mg p.o. q. 4 hours p.r.n., getting albuterol ipratropium treatments q. 4 hours, Abilify 2 mg p.o. daily, aspirin 81 mg a day, Lipitor 80 mg a day, Plavix 75 mg a day, Cardizem drip, doxycycline 100 mg IV q. 12 hours, getting low-dose heparin 5000 units subcutaneous q. 12 hours, methylprednisone 40 mg IV q. 8 hours, metoprolol succinate 25 mg b.i.d., nicotine patch 21 mg a day, linezolid 600 mg IV q. 12 hours. The amiodarone was stopped. cc: Barry Weller MD
[2019-01-04] MEDS ORDERED: NS 2,000 ML MISC PRN (13:05)
[2019-01-04] MEDS: HALDOL IV PRN (19:39)
[2019-01-05] MEDS: ZOSYN 2.25 GM in NS 50 ML IV SCH ×2 (00:04→05:03)
[2019-01-05] MEDS: SOLU-MEDROL IV SCH ×3 (00:04→17:00)
[2019-01-05] MEDS: XANAX PO PRN (01:09)
[2019-01-05] MEDS: HALDOL IV PRN ×2 (01:53→20:11)
[2019-01-05] MEDS: DUONEB (A & A) INH SCH ×3 (03:27→11:24)
[2019-01-05] MEDS: ZYVOX 600 MG/D5W 600 MG/300 ML IVPB IV SCH (04:33)
[2019-01-05] MEDS: HEPARIN SUBQ SCH (04:34)
--- NOTE | 2019-01-05 05:28 | PULMONOLOGY PROGRESS NOTE ---
DATE: 01/04/2019 SUBJECTIVE: The patient had an episode of wide complex tachycardia over the weekend, and went through the amiodarone protocol and has been placed on augmented beta blockers. She is currently on BiPAP. Family reports she has had increased difficulty throughout the weekend. OBJECTIVE: Vital Signs: Blood pressure 133/51, heart rate 92, respiratory rate 21, oxygen saturation 97%. She is on no vasopressors. HEENT: Mild temporal wasting. Pupils are equal and reactive. Oropharynx appears clear. Neck: Supple. Chest: Reveals rhonchi bilaterally. Cardiac: S1, S2. Abdomen: Soft. Extremities: Reveal +1 edema. LABORATORY DATA: Chest x-ray reveals cardiomegaly with pulmonary edema, which has slightly improved over the last 24 hours. White blood count 27,000, hemoglobin 10.0, platelet count 303,000. Arterial blood gas reveals a pH of 7.31, pCO2 of 25, PO2 of 40, with a lactate of 3.2 (yesterday's ABG). IMPRESSION: A 73-year-old with: 1. Acute hypoxemic respiratory failure. 2. Pneumonia. 3. Diabetes mellitus. 4. Three-vessel coronary artery disease with non ST-segment elevation myocardial infarction. 5. Ventricular tachyarrhythmias/ventricular tachycardia. 6. Acute renal failure. DISCUSSION: A 73-year-old with multiple problems outlined above. She continues to have cardiac issues with elevated enzymes and now with arrhythmias. PLAN: 1. Continue to cycle BiPAP at bedtime and p.r.n. 2. Continue broad-spectrum antibiotics. 3. Prognosis is guarded. The patient has been quite clear and she does not want aggressive measures if she does not do well. cc: Isaias Dwyer MD
[2019-01-05 05:53] LABS: BASO# 0.01 X1000 (0.0-0.2); HEMATOCRIT 30.9 % (37.0-47.0); IMM GRAN# 0.21 X1000 (0.0-0.04); IMM GRAN% 0.8 % (0.0-0.5); LYMPH# 1.64 X1000 (1.2-3.4); LYMPH% 6.2 % (20.5-51.1); MCH 29.2 PG (27-31); MCHC 32.4 g/dL (33-37); MCV 90.1 FL (81-99); MONO# 0.82 X1000 (0.11-0.59); MONO% 3.1 % (1.7-9.3); MPV 10.5 FL (7.4-10.4); NEUT% 89.9 % (42.2-75.2); PLT 266 X1000 (130-400); RBC 3.43 XMIL (4.2-5.4); RDW 16.5 % (11.5-14.5); WBC 26.38 X1000 (4.8-10.8)
[2019-01-05] MEDS: HUMULIN R SUBQ SCH (05:59)
[2019-01-05 06:22] LABS: ALBUMIN 2.9 g/dL (3.5-5.0); CALCIUM 8.7 mg/dL (8.8-10.2); CREATININE 5.6 mg/dL (0.5-0.9); TOTAL BILIRUBIN 0.23 mg/dL (0.20-1.00); TOTAL PROTEIN 5.8 g/dL (6.3-8.3)
--- NOTE | 2019-01-05 07:05 | Diag Imaging Result Doc PS360 ---
EXAM: CHEST-PORTABLE 01/05/2019 HISTORY: respiratory failure TECHNIQUE: AP portable upright at 0456 COMMENT: There is cardiomegaly increased pulmonary vascularity and interstitial pulmonary edema. There is some alveolar opacity in the lower lobes. Compared to 01/04/2019 there has been no significant change. There has been slight improvement with regard to the right lower lobe compared to 01/03/2019. IMPRESSION: Pulmonary edema. Electronically signed by Fermin Rivera 01/05/2019 7:03 AM
[2019-01-05] MEDS: LIPITOR PO SCH (08:49)
[2019-01-05] MEDS: TOPROL XL PO SCH (08:49)
[2019-01-05] MEDS: ASPIRIN PO SCH (08:49)
[2019-01-05] MEDS: PLAVIX PO SCH (08:49)
[2019-01-05] MEDS: ABILIFY PO SCH (08:49)
[2019-01-05] MEDS ORDERED: TYLENOL PR PRN (11:33)
[2019-01-05] MEDS ORDERED: ZOFRAN IV PRN (11:33)
[2019-01-05] MEDS: DOXYCYCLINE 100 MG in NS 250 ML IV SCH (11:44)
[2019-01-05] MEDS: DILAUDID IV PRN ×2 (12:32→22:08)
--- NOTE | 2019-01-05 13:39 | PROGRESS NOTE ---
DATE: 01/05/2019 SUBJECTIVE: Ms. Botello was sleeping. She has refused dialysis. Dr. Dumont did talk to family. I think she would like to pursue comfort measures. I think the children are in agreement, so we will pursue comfort measures only. OBJECTIVE: Vital signs: Temperature 98.3 degrees, pulse 69, respirations 20, blood pressure 102/44. Pupils are equal and round. Lungs are clear in all lung mahoney. Cardiovascular exam: Regular rhythm and rate without murmur or S3. Urine output was 2400 mL. IMAGING: Chest x-ray shows some pulmonary edema, cardiomegaly, increased pulmonary vascularity, interstitial pulmonary edema. There is some alveolar opacity in the lower lobes but no significant change. ASSESSMENT AND PLAN: Acute hypoxemic respiratory failure with pneumonia. She has underlying 3- vessel coronary artery disease with non ST-segment elevation myocardial infarction, ventricular tachyarrhythmia, ventricular tachycardia, diabetes mellitus, acute renal failure, and she would like to pursue comfort measures. Continue cyclic BiPAP as desired. Continue broad-spectrum antibiotics at this point. REVIEW OF THE ORDERS: I do not see any changes. LABORATORY DATA: From today, [place] [address], hematocrit is 30, platelet count 266,000. Electrolytes unremarkable other than creatinine of 5.6. cc: Barry Weller MD
--- NOTE | 2019-01-05 16:18 | PROVIDER PROGRESS NOTE ---
Progress Note Subjective: pt lying in bed with HOB elevated. voices feeling tired and having a dry mouth. Objective: temperature 97.4, pulse 72, respirations 26, blood pressure 115/54, 02 sat 97% on 40% BIPAP. General: Elderly white female lying in bed in some acute respiratory distress. HEENT: Normocephalic, a traumatic, mucous membranes dry, pupils equal and reactive, trachea midline. Skin: Dialysis access to right femoral Neck: supple, no jvd observed Cardiovascular: S1S2, no murmur or gallop Respiratory: anterior high pitched wheezes and rhonchi, using accessory muscles Abdominal: slightly firm, non tender, non distended, bowel sounds hypoactive : non observed, lui in place Extremities: Trace edema to BUR with 1+pitting to BLE Neurologic: alert, oriented to person and place. Labs: WBC 26.38, hemoglobin 10, hematocrit 30.9, platelet count 266, sodium 133, potassium five, chloride 96, carbon dioxide 14, BUN 90, creatinine 5.6, calcium 8.7. Intake 1490, output 40. Impression: Acute kidney injury without recovery. She initiated dialysis over the weekend. Shes been made a do not resuscitate with a do not intubate. Family is to disc uss further dialysis treatment. Metabolic acidosis. If patient wishes to continue with dialysis this will be corrected, unsure of patient plans right now. Nutrition. Supplements on board. Medication review.
[2019-01-05 17:05] VITALS: BP 100/50
--- NOTE | 2019-01-05 20:24 | PULMONOLOGY PROGRESS NOTE ---
DATE: 01/05/2019 SUBJECTIVE: The patient responds to voice. She occasionally will cry out, but cannot indicate why. OBJECTIVE: Vital Signs: The patient has been afebrile for the last 24 hours. Blood pressure 102/44, heart rate 69, respiratory rate 23, oxygen saturation 97% on Venturi mask. HEENT: Pupils are equal and reactive. Oropharynx is clear. Neck: Supple. Chest: Bilateral crackles. Cardiac: S1, S2. Abdomen: Soft. Extremities: 1+ peripheral edema. LABORATORIES: Chest x-ray reveals cardiomegaly with pulmonary edema. It is not significantly changed compared to yesterday. Sodium 133, potassium 5.0, chloride 96, bicarbonate 14, BUN 90, creatinine 5.6. White blood count 26,000, hemoglobin 10.0, platelet count 266,000. IMPRESSION: A 73-year-old with: 1. Acute hypoxemic respiratory failure. 2. Pneumonia. 3. Pulmonary edema. 4. Diabetes mellitus. 5. Three-vessel coronary artery disease with non ST-segment elevation myocardial infarction. The patient previously was referred to cardiothoracic surgeon for bypass grafting, but she elected not to proceed. 6. Ventricular tachycardia. 7. Acute renal failure. DISCUSSION: A 73-year-old with problems outlined above. The patient is now refusing dialysis. End of life discussions have been held by the palliative care nurse. Family and patient will transition from acute care to comfort measures and hospice care. PLAN: 1. Agree with plans for comfort measures. 2. No additional recommendations. Available as necessary. cc: Isaias Dwyer MD
[2019-01-06] MEDS: HALDOL IV PRN ×4 (00:15→06:18)
[2019-01-06] MEDS: DILAUDID IV PRN ×5 (00:15→09:08)
[2019-01-06] MEDS: SOLU-MEDROL IV SCH ×2 (00:16→09:07)
[2019-01-06] MEDS ORDERED: ATROPINE 1 % OPHTH SOLN SL PRN (08:53)
--- NOTE | 2019-01-06 12:50 | PROGRESS NOTE ---
DATE: 01/06/2019 The patient was found not breathing at 11:10 this morning. No heart sounds, no heart beat, and pronounced . Family at the bedside and aware. cc: Barry Weller MD
--- NOTE | 2019-01-06 13:06 | DISCHARGE SUMMARY ---
ADMISSION DATE: 12/28/2018 DISCHARGE DATE: 01/06/2019 SUMMARY HISTORY OF PRESENT ILLNESS: She is a patient Dr. Allison Jones who presented with shortness of breath, coughing for 3 days. This is a 73-year-old elderly female with history of hypertension, diabetes mellitus type 2, hyperlipidemia, presented to the emergency department after a 3-day history of worsening shortness of breath, persistent cough. States it was productive of yellow material. States she was having difficulty breathing. Evaluated in the emergency room. Imaging done found what appeared to be an atypical pneumonia. Due to presenting symptoms, was admitted. At the time of examination, patient denied headache, fever, chills, chest pain, hemoptysis, melena, but complained of coughing and shortness of breath. PAST MEDICAL HISTORY: 1. Hypertension. 2. Diabetes mellitus type 2. 3. Hyperlipidemia. PAST SURGICAL HISTORY: 1. Lung surgery. 2. Hysterectomy. 3. Cholecystectomy. 4. Neck surgery. 5. Ankle surgery. ALLERGIES: Lorazepam and morphine. ADMISSION DIAGNOSES: 1. Atypical pneumonia, possible sepsis. She did have elevated troponin. Concerned about either oxygen perfusion mismatch or possible non ST wave elevation myocardial infarction. 2. Hypertension. 3. Diabetes mellitus type 2. HOSPITAL COURSE: Admitted to the [facility]. Echocardiogram with Doppler done on 12/28/2018 showed global left ventricular systolic function probably at lower limits of normal. Estimated ejection fraction 55%. I believe there was wall motion abnormality involving the posterior and inferior wall of the left ventricle suggesting coronary artery disease. Aortic valve probably normal, and the other valves, mitral valve showed no significant regurgitation. Cardiology was asked to see. Dr. Lyndon Gonzalez. Hypotension, positive lactate, elevated white count, septic shock most likely the etiology of her symptoms. Echocardiogram showed low normal left ventricular ejection fraction with small wall motion abnormality suggestive of coronary artery disease. The patient has known severe coronary artery disease and refused intervention back in 2017. She did not want to have a bypass so we continued her aspirin. Pulmonary consultation per Dr. Dwyer felt acute hypoxemic respiratory failure, hypercapnic respiratory failure, leukocytosis with patchy infiltrate on the CT scan in her lungs consistent with pneumonia. [id number] myocardial infarction was suspected. Renal ultrasound showed small renal cysts, otherwise normal, and Nephrology was asked to see. She appeared to have pulmonary venous hypertension and we kept her on broad-spectrum antibiotics, continued aspirin and Plavix for coronary artery disease and had her on low-dose heparin for DVT prophylaxis. She was seen by Dr. Dumont for oliguric acute renal failure. She had really no recovery. I think she tried some SLED therapy but had struggled to keep her blood pressure up and diurese any significant volume. She refused dialysis and really wanted comfort measures, which we pursued. She was moved to a regular floor and she on 01/06/2019. cc: Barry Weller MD
--- NOTE | 2019-03-04 15:12 | EKG Report ---
Test Performed on : 12/27/2018 9:49:53 PM Test Reason : CP Blood Pressure : / mmHG Vent. Rate : 112 BPM Atrial Rate : 112 BPM P-R Int : 148 ms QRS Dur : 114 ms QT Int : 478 ms P-R-T Axes : 070 083 082 degrees QTc Int : 652 ms Sinus tachycardia. with frequent premature ventricular complexes. ST depression, consider subendocardial injury Prolonged QT Abnormal ECG When compared with ECG of 21-OCT-2016 13:48, premature ventricular complexes. are now present QRS duration has increased ST now depressed in Inferior leads ST now depressed in Lateral leads Unconfirmed Result
== END 2019-01-06 11:10 | disposition expired | DRG 871 ==
LOC: SUPCPDRO → ED 21:38 → EDIPHOLD 12-28 04:01 → SUATTDRO 12-28 04:01 → 2N 12-28 12:43 → ICU 12-28 21:34 → 1N 01-05 17:35
PROVIDERS: ATTEND Emergency Medicine